=== PATIENT | female | born 1950 | race Two or more races ===

== ENCOUNTER → 2017-04-21 | Outpatient (CLI) | payer OTHER | LOC: SBRMNEURO 21:30 | PROVIDERS: ATTEND Psychiatry & Neurology Sleep Medicine | DX: G47.33 Obstructive sleep apnea (adult) (pediatric) (principal) ==

== ENCOUNTER 2018-05-16 09:18 | Day surgery (SDC) | payer OTHER ==
--- NOTE | 2018-05-15 11:47 | GHP ---
DATE OF ADMISSION: 05/16/2018 HISTORY OF PRESENT ILLNESS: The patient is a 67-year-old female who originally presented to our offi ce for what she thought was a right breast hematoma. She reports that it had been present for approx imately 2 years and had not changed in size. She does take Eliquis for a history of pulmonary emboli sm and TIA. Prior to presenting to our office, she saw her PCP for increased redness and tenderness around the site and was placed on a course of Augmentin. Upon presentation to our office, there was a concern for breast cancer as opposed to a hematoma. We performed a needle biopsy in the office thu t revealed invasive ductal carcinoma, at least 12 mm in size. It is ER/AR positive. Subsequently, s junaid presented to the emergency room on 03/26/2018, with a complaint of general fatigue and was found t o have a platelet count of 12,000. She was discharged the following day. Dr. Ozuna is her oncologi st, who at that time prescribed Augmentin for what was concerning for underlying cellulitis around he r breast mass. Dr. Miguel Ozuna feels that the patient would benefit from having chemotherapy followed by a lumpecto my. Our plan is to place a port for chemotherapy administration. PAST MEDICAL HISTORY: Asthma, congestive heart disease, essential hypertension, history of pulmonary embolism, left bundle branch block, nonischemic cardiomyopathy, pacemaker, internal cardiac defibril lator, transient ischemic attack. PAST SURGICAL HISTORY: Pacemaker. MEDICATION LIST: Benazepril 10 mg tablet, carvedilol 25 mg, Eliquis 5 mg b.i.d., loratadine 10 mg as needed, omeprazole 20 mg daily, ProAir HFA 90 mcg per actuation inhaler as needed for asthma, Pulmic ort 2 puffs b.i.d., spironolactone 25 mg every other day. ALLERGIES: Sulfa. FAMILY HISTORY: Noncontributory. SOCIAL HISTORY: She is a former smoker. She does not drink alcohol. She is . REVIEW OF SYSTEMS: Ten-point review of systems was performed and is negative except for what is in t he HPI. PHYSICAL EXAM: GENERAL: Well-appearing, well-dressed, obese female in no acute distress. HEENT: N ormocephalic, atraumatic. No gross hearing deficits. Mucous membranes are moist. Pupils are equal and round. PSYCHIATRIC: Appropriate mood and affect. NEUROLOGIC: Alert and oriented x3. CARDIAC: Regular rate and rhythm. CHEST: Clear to auscultation bilaterally. No crackles, rales, or rhonch i. ABDOMEN: Soft, nondistended, nontender. SKIN: Warm and dry. No rashes or jaundice. MUSCULOSK ELETAL: Moves all extremities equally. BREASTS: There is a firm mass, approximately 3 x 3 cm in si ze, in the right breast in the 2 o'clock position. There is significant surrounding induration. IMPRESSION AND PLAN: This is a 67-year-old female with newly found breast cancer who, along with her oncologist, have chosen to pursue chemotherapy prior to having surgery. We will plan to place a por t. Risks and options have been fully discussed. Risks of surgery include, but are not limited to, i nfection, bleeding, pneumothorax, hemothorax, heart attack, and . Patient understands and wishe s to proceed. /[id number]/MODL
[2018-05-16] MEDS ORDERED: ceFAZolin 2 GM/DEXTROSE 100 ML IV ONE (09:36)
[2018-05-16] MEDS ORDERED: LR 1,000 ML IV ONE (09:58)
[2018-05-16] MEDS ORDERED: LIDOCAINE 1% 2 ML INJ ID PRN (09:58)
[2018-05-16] MEDS ORDERED: BUPIVACAINE 0.5% 30 ML SDV ONE (11:18)
--- NOTE | 2018-05-16 11:18 | PDHPUP ---
History & Physical Update H&P update statement: This history and physical update is based on an assessment of the patient which was completed after admission or registration (within 24 hours), but prior to the surgery/procedure. H&P update: H&P reviewed & patient examined, no change in patient's condition since H&P completed
[2018-05-16] MEDS ORDERED: MIDAZOLAM 2 MG/2 ML VIAL IVP ONE (11:21)
[2018-05-16] MEDS ORDERED: PROPOFOL/EMULSION 500 MG/50 ML BOTTLE IV ONE (11:22)
[2018-05-16] MEDS ORDERED: ACETAMINOPHEN 500 MG TAB PO PRN (11:24)
[2018-05-16] MEDS ORDERED: fentaNYL 100 MCG/2 ML INJ IVP PRN (11:24)
[2018-05-16] MEDS ORDERED: ONDANSETRON 4 MG/2 ML VIAL IVP PRN (11:24)
[2018-05-16] MEDS ORDERED: HYDROCODONE/APAP 5/325 TAB PO PRN (11:24)
[2018-05-16] MEDS ORDERED: oxyCODONE IR 5 MG TAB PO PRN (11:24)
[2018-05-16] MEDS ORDERED: NALOXONE HCL 0.4 MG/ML INJ IVP PRN (11:24)
[2018-05-16] MEDS ORDERED: PROMETHAZINE HCL 25 MG/ML INJ IVP PRN (11:24)
--- NOTE | 2018-05-16 11:24 | PDANEPAE ---
ANE Past Medical History - Cardiovascular History Hx Hypertension: Yes Hx Arrhythmias: No Hx Chest Pain: No Hx Coronary Artery / Peripheral Vascular Disease: No Hx CHF / Valvular Disease: Yes Hx Palpitations: No Cardiovascular History Comment: hx blood clots - most recent in RLE beginning of March. Has stopped Eliquis 05/14 for surgery and will restart on 05/17. - Pulmonary History Hx COPD: No Hx Asthma/Reactive Airway Disease: Yes Hx Recent Upper Respiratory Infection: No Hx Oxygen in Use at Home: Yes O2 in Use at Home (L/minute): Uses 2L/min PRN Hx Sleep Apnea: No Sleep Apnea Screening Result - Last Documented: Positive Pulmonary History Comment: AMADOR Triggers - Neurologic History Hx Cerebrovascular Accident: Yes Hx Seizures: No Hx Dementia: No Neurologic History Comment: Hx TIA, 2016 - Endocrine History Hx Diabetes: No Obesity: severe - Renal History Hx Renal Disorders: No - Liver History Hx Hepatic Disorders: No - Neurological & Psychiatric Hx Hx Neurological and Psychiatric Disorders: No - Cancer History Hx Cancer: Yes Cancer History Comment: Breast cancer - Congenital Disorder History Hx Congenital Disorders: No - GI History GERD: moderate Hx Gastrointestinal Disorders: Yes Gastrointestinal History Comment: GERD - Other Health History Other Health History: hospitalized for thrombocytopenia 03/2018. gets eczema to different places on body - none currently. wears glasses. two bridges, upper & lower - Chronic Pain History Chronic Pain: No - Surgical History Prior Surgeries: pacemaker placement ANE Review of Systems Review of Systems: - Exercise capacity METS (RN): 2 METS - Pacemaker Pacemaker Type: Permanent Pacer/Defib Pacemaker [employer] Operator: [employer] Pacemaker Model: Itrevia 7 HF-T QP Pacemaker Mode: DDD-CLS Pacemaker Set Rate: 65 Date Pacemaker Last Checked: 11/19/2017 ANE Patient History - Allergies Allergies/Adverse Reactions: latex Allergy (Verified 05/16/18 10:01) Rash levofloxacin [From Levaquin] Allergy (Verified 05/16/18 10:01) Vomiting Sulfa (Sulfonamide Antibiotics) Allergy (Verified 05/16/18 10:01) Vomiting ALL ANTIBIOTIC Allergy (Uncoded 05/15/18 11:51) nausea - Home Medications Home medications: home medication list seen and reviewed Home Medications: Benazepril HCl [Lotensin (*)] 03/26/18 [Last Taken 05/15/18] Budesonide 180 Mcg INH [Pulmicort 180Mcg Flexhaler (*)] 03/26/18 [Last Taken 07:30] Carvedilol [Coreg (*)] 03/26/18 [Last Taken 05/16/18 07:30] Loratadine 03/26/18 [Last Taken 05/16/18 07:30] Omeprazole 03/26/18 [Last Taken 05/16/18 07:30] Spironolactone [Aldactone 25 MG (*)] 03/26/18 [Last Taken 05/15/18] Albuterol [Proventil Inhaler HFA (*)] 03/27/18 [Last Taken Unknown] Eliquis 05/15/18 [Last Taken 05/14/18] - NPO status NPO Status: no food or drink >8 hours NPO Since - Liquids (Date): 05/15/18 NPO Since - Liquids (Time): 22:30 NPO Since - Solids (Date): 05/15/18 NPO Since - Solids (Time): 19:30 - Anes Hx Anes Hx: no prior problems - Smoking Hx Smoking Status: Former smoker - Family Anes Hx Family Hx Anesthesia Complications: none ANE Labs/Vital Signs - Labs Result Diagrams: 05/16/18 10:15 - Vital Signs Blood Pressure: 109/67 Heart Rate: 79 Respiratory Rate: 16 O2 Sat (%): 95 Height: 162.56 cm Weight: 102.058 kg ANE Physical Exam - Airway Neck exam: FROM Mallampati Score: Class 1 Mouth exam: normal dental/mouth exam - Pulmonary Pulmonary: no respiratory distress, no rales or rhonchi, reduced air movement - Cardiovascular Cardiovascular: regular rate and rhythym, no murmur, rub, or gallop ANE Anesthesia Plan Anesthesia Plan: MAC
[2018-05-16] MEDS ORDERED: LIDOCAINE 2% 2 ML INJ ONE ×2 (11:25)
[2018-05-16] MEDS ORDERED: ONDANSETRON 4 MG/2 ML VIAL ONE (11:25)
[2018-05-16] MEDS ORDERED: BACITRACIN ZINC 14.2 GM OINTTUBE TP ONE (12:33)
--- NOTE | 2018-05-16 12:44 | POSTOPPROG ---
Post Op Note Date of Operation: 05/16/18 Surgeon: Scotty Esparza Anesthesiologist: jean marie Anesthesia: IV Sedation Pre-op Diagnosis: breast cancer Post-op Diagnosis: same Indication: chemo access Procedure: right subclavian port with flouro Findings: good position and flow Inf/Abcess present in the surg proc area at time of surgery?: No Depth: Deep Incisional (Fascial) EBL: Minimal Complications: 0
--- NOTE | 2018-05-16 13:01 | POSTANESTH ---
Post Anesthetic Evaluation Cardiovascular Status: Similar to Pre-Op Cond Respiratory Status: Similar to Pre-op Cond. Level of Consciousness/Mental Status: Can Participate in Eval, Alert and Oriented Pain Control: Adequate, Prn Tx Ordered Nausea/Vomiting Control: Adequate, Prn Tx Ordered Complications Possibly Related to Anesthesia: None Noted
[2018-05-16] MEDS ORDERED: fentaNYL 100 MCG/2 ML INJ ONE (13:23)
[2018-05-16 14:42] VITALS: BP 106/67
--- NOTE | 2018-05-19 07:51 | GOP ---
DATE OF OPERATION: 05/16/2018 SURGEON: Scotty Esparza MD PREOPERATIVE DIAGNOSIS: Breast cancer. POSTOPERATIVE DIAGNOSIS: Breast cancer. PROCEDURE PERFORMED: Right subclavian port placement with fluoroscopic guidance. FINDINGS: The patient was found in good position and good flow of the catheter. DESCRIPTION OF PROCEDURE: The patient was taken to the operating room where she received satisfactor y IV sedation and monitored anesthesia care, placed in the supine position, prepped and draped in usu al sterile fashion. She was then placed in Trendelenburg. Area was infiltrated with 0.5% Marcaine. A single stick was made in the right subclavian vein. Guidewire was introduced. Position was confi rmed with fluoroscopy. A subcu pocket was made in the subcutaneous tissue. Port tubing was passed f rom that pocket to the subclavian insertion site. It was trimmed to the appropriate length using flu oroscopic guidance, then introduced through the introducer sheath and dilator system into the right a trium. Port was irrigated with heparin and saline and appeared to flow well. Port was secured to th e fascia with 3-0 Vicryl. Pocket was closed with 3-0 Vicryl for the subcu and 4-0 Prolene subcuticul ar stitch for the skin, and the entrance site was closed with 4-0 Prolene mattress suture. She inge ated procedure well, taken to recovery room in good condition. There were no complications, appropri ate vital signs. Copy requested to: Miguel Garduno /[id number]/MODL
== END 2018-05-16 14:34 | disposition home or self-care (01) ==
LOC: FSGY 09:18
PROVIDERS: ATTEND Surgery
PROC: 0JH60XZ Insertion of Tunneled Vascular Access Device into Chest Subcutaneous Tissue and Fascia, Open Approach (ICD-10-PCS; principal; 2018-05-16 10:45)
PROC: 02HV33Z Insertion of Infusion Device into Superior Vena Cava, Percutaneous Approach (ICD-10-PCS; principal; 2018-05-16 10:45)
DX: Z45.2 Encounter for adjustment and management of vascular access device (principal); C50.111 Malignant neoplasm of central portion of right female breast; Z79.01 Long term (current) use of anticoagulants; Z86.73 Personal history of transient ischemic attack (TIA), and cerebral infarction without residual deficits; Z86.711 Personal history of pulmonary embolism; I10 Essential (primary) hypertension; G47.33 Obstructive sleep apnea (adult) (pediatric)
CPT/HCPCS: C1788; J0690; J1642; J2250; J2405; J2704; J3010

== ENCOUNTER 2018-06-13 17:45 | Inpatient (IN) | payer OTHER ==
[2018-06-13] MEDS ORDERED: NS 1,000 ML IV ONE (18:05)
--- NOTE | 2018-06-13 18:05 | EDPHY ---
H & P Stated Complaint: post chemo oral throat soreness diarrhea/not eating Time Seen by Provider: 06/13/18 18:00 HPI/ROS: HPI: This is a 67-year-old female who presents with Chief Complaint: post chemo oral throat soreness diarrhea/not eating Location: Body Quality: Generalized weakness Duration: 1 week Signs and Symptoms: no fever, no nausea, no vomiting, no diarrhea, no urinary symptoms, no chest pain, no shortness of breath, no wheezing, no cough, +sore throat, no neck stiffness, no joint pain, no swollen glands, no ear pain, no rash Timing: Gradually worsening Severity: Moderate to severe Context: Patient has a history of breast cancer, had chemotherapy on 06/05/2018 , and has had slow decline since that time and now complains of generalized body weakness. She has not eaten food in several days. She has been sipping on water. She denies nausea, vomiting. She does have loose stools approximately 1-2 per day. Denies any recent antibiotic use/foreign travel. Denies any abdominal pain, abdominal cramping, blood in stool, hematemesis. She reports that she was given oxycodone for pain but it makes her"feel funny." She does not take this pain medication because of the side effects. She is on Eliquis for history of DVT/PE reports that she has not taken it in 2-3 days. She is followed by Oncology, Dr. Ozuna. Patient denies any fevers. She does complain of a sore throat and dry cracked lips. Modifying Factors: none Comment: ROS: A comprehensive 10 system review of systems is otherwise negative aside from elements mentioned in the history of present illness. MEDICAL/SURGICAL/SOCIAL HISTORY: Medical history: Asthma, breast cancer, chemotherapy Surgical history: Pacemaker Social history: Former smoker. Family history noncontributory. CONSTITUTIONAL: Chronically ill-appearing, elderly white female, at bedside, awake and alert, no obvious distress HEENT: Atraumatic and normocephalic, PERRL, EOMI. Nares patent; no rhinorrhea; no nasal mucosal edema. Tympanic membranes clear. Oropharynx clear, no exudate and, oral petechiae noted, cracked lips, dry oral mucosa. Airway patent. No lymphadenopathy. No meningismus. Cardiovascular: Normal S1/S2, tachycardia, regular rhythm, without murmur rub or gallop. PULMONARY/CHEST: Symmetrical and nontender. Clear to auscultation bilaterally. Good air movement. No accessory muscle usage. ABDOMEN: Soft, obesely rounded, nontender, no rebound, no guarding, no peritoneal signs, no masses or organomegaly. No CVAT. EXTREMITIES: 2/2 pulses, strength 5/5, no deformities, no clubbing, no cyanosis or edema. NEUROLOGICAL: no focal neuro deficits. GCS 15. SKIN: Warm and dry, no erythema. no rash. Good capillary refill. Source: Patient, Family Exam Limitations: No limitations - Personal History Current Tetanus Diphtheria and Acellular Pertussis (TDAP): Unsure Tetanus Vaccine Date: <10 years - Medical/Surgical History Hx Asthma: Yes Hx Chronic Respiratory Disease: No Hx Diabetes: No Hx Cardiac Disease: No Hx Renal Disease: No Hx Cirrhosis: No Hx Alcoholism: No Hx HIV/AIDS: No Hx Splenectomy or Spleen Trauma: No Other PMH: asthma, pacemaker, breast CA - Social History Smoking Status: Former smoker Constitutional: Initial Vital Signs Temperature (C) 37.2 C 06/13/18 17:50 Heart Rate 112 H 06/13/18 17:50 Respiratory Rate 18 06/13/18 17:50 Blood Pressure 140/94 H 06/13/18 17:50 O2 Sat (%) 94 06/13/18 17:50 O2 Delivery Mode Room Air Allergies/Adverse Reactions: latex Allergy (Verified 06/13/18 17:47) Rash levofloxacin [From Levaquin] Allergy (Verified 06/13/18 17:47) Vomiting Sulfa (Sulfonamide Antibiotics) Allergy (Verified 06/13/18 17:47) Vomiting ALL ANTIBIOTIC Allergy (Uncoded 05/15/18 11:51) nausea Home Medications: Medication Instructions Recorded Benazepril HCl [Lotensin (*)] 03/26/18 Budesonide 180 Mcg INH [Pulmicort 03/26/18 180Mcg Flexhaler (*)] Carvedilol [Coreg (*)] 03/26/18 Loratadine 03/26/18 Omeprazole 03/26/18 Spironolactone [Aldactone 25 MG 03/26/18 (*)] Albuterol [Proventil Inhaler HFA 03/27/18 (*)] Eliquis 06/13/18 Medical Decision Making ED Course/Re-evaluation: IV access and laboratory studies obtained upon arrival. Vital signs show tachycardia likely due to pre renal from lack of intake and GI losses. Urinalysis, strep test ordered along with lactic acid. Patient refused influenza testing. Patient is afebrile and denies fevers. Patient is immunocompromised. Given 1 L normal saline 1830: Rapid strep negative and lactic acid 1.7 urinalysis shows 2+ protein, trace ketones, 1+ blood, 1+ glucose; indicating dehydration; 4+ bacteria; sent for urine culture and IV 2 g Rocephin given 183: Labs reviewed. Sodium 130, BUN 41, creatinine 1.3, potassium 3.8; total bilirubin 2.9, conjugated bilirubin 1.1, unconjugated bilirubin 1.8. Laboratory studies on 05/16/2018 showed BUN of 14 and creatinine 1.0. This is indicative of acute renal insufficiency. 1850: Called by lab to notify me that platelets are 11 K, H&H 12.4/36.6, WBC 1.22 1840: ED decision to consult for admission acute renal insufficiency, UTI, thrombocytopenia. Spoke with hospitalist, Dr. John, who kindly agrees to admit patient and provide further care. This patient was seen under the supervision of my secondary supervising physician. I evaluated care for this patient independently. Discussed this patient with Dr. Vasuqez. Differential Diagnosis: Weakness including but not limited to electrolyte abnormality, depression, anxiety, CVA, spinal cord abnormality, and infectious causes. - Data Points Laboratory Results: Laboratory Results 06/13/18 18:11 06/13/18 18:11 06/13/18 06/13/18 06/13/18 Unknown 18:19 18:11 WBC RBC Hgb Hct MCV MCH MCHC RDW Plt Count MPV Neut % (Auto) Lymph % (Auto) [place] % (Auto) Eos % (Auto) Baso % (Auto) Nucleat RBC Rel Count Absolute Neuts (auto) Absolute Lymphs (auto) Absolute Monos (auto) Absolute Eos (auto) Absolute Basos (auto) Absolute Nucleated RBC Immature Gran % Immature Gran # Platelet Estimate Smear Review By PT INR APTT VBG Lactic Acid Sodium 130 mEq/L L mEq/L (135-145) Potassium 3.8 mEq/L mEq/L (3.3-5.0) Chloride 97 mEq/L mEq/L (97-110) Carbon Dioxide 21 mEq/l L mEq/l (22-31) Anion Gap 12 mEq/L mEq/L (6-14) BUN 41 mg/dL H mg/dL (7-23) Creatinine 1.3 mg/dL H mg/dL (0.6-1.0) Estimated GFR 41 Glucose 105 mg/dL H mg/dL (70-100) Calcium 8.8 mg/dL mg/dL (8.5-10.4) Total Bilirubin 2.9 mg/dL H mg/dL (0.1-1.4) Conjugated Bilirubin 1.1 mg/dL H mg/dL (0.0-0.5) Unconjugated Bilirubin 1.8 mg/dL H mg/dL (0.0-1.1) AST 30 IU/L IU/L (14-46) ALT 39 IU/L IU/L (9-52) Alkaline Phosphatase 64 IU/L IU/L (38-126) Total Protein 5.8 g/dL L g/dL (6.3-8.2) Albumin 3.3 g/dL L g/dL (3.5-5.0) Urine Color ZARIA Urine Appearance MODERATELY TURBID Urine pH 5.0 (5.0-7.5) Ur Specific [place] 1.023 (1.002-1.030) Urine Protein 2+ H (NEGATIVE) Urine Ketones TRACE H (NEGATIVE) Urine Blood 1+ H (NEGATIVE) Urine Nitrate NEGATIVE (NEGATIVE) Urine Bilirubin NEGATIVE (NEGATIVE) Urine Urobilinogen 4.0 EU H EU (0.2-1.0) Ur Leukocyte Esterase NEGATIVE (NEGATIVE) Urine RBC 3-5 /hpf H /hpf (0-3) Urine WBC 50-182 /hpf H /hpf (0-3) Ur Epithelial Cells TRACE /lpf /lpf (NONE-1+) Urine Bacteria 4+ /hpf H /hpf (NONE SEEN) Urine Mucus 2+ /lpf H /lpf (NONE-1+) Urine Glucose 1+ H (NEGATIVE) Group A Strep Screen Group A Strep DNA Pending 06/13/18 06/13/18 06/13/18 18:11 18:11 18:11 WBC 1.22 10^3/uL L 10^3/uL (3.80-9.50) RBC 4.27 10^6/uL 10^6/uL (4.18-5.33) Hgb 12.4 g/dL L g/dL (12.6-16.3) Hct 36.6 % L % (38.0-47.0) MCV 85.7 fL fL (81.5-99.8) MCH 29.0 pg pg (27.9-34.1) MCHC 33.9 g/dL g/dL (32.4-36.7) RDW 13.0 % % (11.5-15.2) Plt Count 11 10^3/uL L* 10^3/uL (150-400) MPV TNP Neut % (Auto) 58.2 % % (39.3-74.2) Lymph % (Auto) 24.6 % % (15.0-45.0) [place] % (Auto) 13.1 % H % (4.5-13.0) Eos % (Auto) 1.6 % % (0.6-7.6) Baso % (Auto) 2.5 % H % (0.3-1.7) Nucleat RBC Rel Count 0.0 % % (0.0-0.2) Absolute Neuts (auto) 0.71 10^3/uL L 10^3/uL (1.70-6.50) Absolute Lymphs (auto) 0.30 10^3/uL L 10^3/uL (1.00-3.00) Absolute Monos (auto) 0.16 10^3/uL L 10^3/uL (0.30-0.80) Absolute Eos (auto) 0.02 10^3/uL L 10^3/uL (0.03-0.40) Absolute Basos (auto) 0.03 10^3/uL 10^3/uL (0.02-0.10) Absolute Nucleated RBC 0.00 10^3/uL 10^3/uL (0-0.01) Immature Gran % 0.0 % % (0.0-1.1) Immature Gran # 0.00 10^3/uL 10^3/uL (0.00-0.10) Platelet Estimate Pending Smear Review By Pending PT 14.2 SEC SEC (12.0-15.0) INR 1.08 (0.83-1.16) APTT 27.5 SEC SEC (23.0-38.0) VBG Lactic Acid 1.7 mmol/L mmol/L (0.7-2.1) Sodium Potassium Chloride Carbon Dioxide Anion Gap BUN Creatinine Estimated GFR Glucose Calcium Total Bilirubin Conjugated Bilirubin Unconjugated Bilirubin AST ALT Alkaline Phosphatase Total Protein Albumin Urine Color Urine Appearance Urine pH Ur Specific [place] Urine Protein Urine Ketones Urine Blood Urine Nitrate Urine Bilirubin Urine Urobilinogen Ur Leukocyte Esterase Urine RBC Urine WBC Ur Epithelial Cells Urine Bacteria Urine Mucus Urine Glucose Group A Strep Screen Group A Strep DNA 06/13/18 18:04 WBC RBC Hgb Hct MCV MCH MCHC RDW Plt Count MPV Neut % (Auto) Lymph % (Auto) [place] % (Auto) Eos % (Auto) Baso % (Auto) Nucleat RBC Rel Count Absolute Neuts (auto) Absolute Lymphs (auto) Absolute Monos (auto) Absolute Eos (auto) Absolute Basos (auto) Absolute Nucleated RBC Immature Gran % Immature Gran # Platelet Estimate Smear Review By PT INR APTT VBG Lactic Acid Sodium Potassium Chloride Carbon Dioxide Anion Gap BUN Creatinine Estimated GFR Glucose Calcium Total Bilirubin Conjugated Bilirubin Unconjugated Bilirubin AST ALT Alkaline Phosphatase Total Protein Albumin Urine Color Urine Appearance Urine pH Ur Specific [place] Urine Protein Urine Ketones Urine Blood Urine Nitrate Urine Bilirubin Urine Urobilinogen Ur Leukocyte Esterase Urine RBC Urine WBC Ur Epithelial Cells Urine Bacteria Urine Mucus Urine Glucose Group A Strep Screen NEGATIVE (NEGATIVE) Group A Strep DNA Medications Given: Discontinued Medications Sodium Chloride (Ns) 1,000 mls @ 0 mls/hr IV ONCE ONE; Wide Open PRN Reason: Protocol Stop: 06/13/18 18:06 Last Admin: 06/13/18 18:21 Dose: 1,000 mls Departure - Departure Disposition: [facility] Inpatient Acute Clinical Impression: Patient on antineoplastic chemotherapy regimen, Generalized weakness, Acute renal insufficiency, Thrombocytopenia due to drugs, UTI (urinary tract infection ), bacterial, Hyponatremia Condition: Fair
[2018-06-13 18:32] LABS: INR 1.08 (0.83-1.16)
[2018-06-13 18:45] LABS: PROTIME(PATIENT) 14.2 SEC (12.0-15.0)
[2018-06-13 18:51] LABS: PLATELET COUNT 11 10^3/uL (150-400)
[2018-06-13] MEDS ORDERED: cefTRIAXone 1 GM/DEXTROSE 1 GM/50 ML BAG IV ONE (19:02)
[2018-06-13] MEDS ORDERED: ONDANSETRON DISINTEGRATING 4 MG TAB PO PRN (19:50)
[2018-06-13] MEDS ORDERED: ONDANSETRON 4 MG/2 ML VIAL IVP PRN (19:50)
[2018-06-13] MEDS ORDERED: ACETAMINOPHEN 325 MG TAB PO PRN (19:50)
[2018-06-13] MEDS ORDERED: ALBUTEROL 60 PUFFS/8 GM MDI IH PRN (19:52)
--- NOTE | 2018-06-13 19:58 | PDGENHP ---
History and Physical - Chief Complaint weakness, diarrhea, malaise - History of Present Illness 67 yo female with recent diagnosis of breast cancer who underwent first round of chemo one week ago presents to ED with general malaise, weakness, diarrhea, and decreased oral intake. She says she has felt terrible since receiving chemo last week. Diarrhea 2-5 times per day. Poor appetite, body aches. She c /o mouth pain and ulcers. She had a significant nosebleed yesterday, which was difficult to stop, but ultimately they did stop it. She continues to have oozing from some sores on her lips, mouth and nose. She denies fevers or chills. No dysuria, frequency or urgency. No abdominal pain, nausea or vomiting. She has been unable to eat due to poor appetite and mouth pain. She hasn't taken her Eliquis or other meds for 2 days. No CP or SOB. She says she wants to discontinue chemo and proceed with mastectomy alone. Doesn't think she can tolerate further chemo treatments. In the ED, she is found to have an acute kidney injury, low sodium, and pancytopenia. She was given 1 L NS and is admitted for further management. History Information - Allergies/Home Medication List Allergies/Adverse Reactions: latex Allergy (Verified 06/13/18 17:47) Rash levofloxacin [From Levaquin] Allergy (Verified 06/13/18 17:47) Vomiting Sulfa (Sulfonamide Antibiotics) Allergy (Verified 06/13/18 17:47) Vomiting ALL ANTIBIOTIC Allergy (Uncoded 05/15/18 11:51) nausea Home Medications: Albuterol [Proventil Inhaler HFA (*)] 1 - 2 puffs IH Q4H PRN 06/13/18 [Last Taken Unknown] Apixaban [Eliquis] 5 mg PO BID 06/13/18 [Last Taken Unknown] Benazepril HCl [Lotensin (*)] 10 mg PO DAILY 06/13/18 [Last Taken Unknown] Budesonide 180 Mcg INH [Pulmicort 180Mcg Flexhaler (*)] 180 mcg IH BID 06/13/18 [Last Taken Unknown] Carvedilol [Coreg (*)] 25 mg PO BIDMEAL 06/13/18 [Last Taken 06/11/18] Loratadine [Claritin] 10 mg PO DAILY 06/13/18 [Last Taken Unknown] Omeprazole 20 mg PO DAILY 06/13/18 [Last Taken 06/11/18] Spironolactone [Aldactone 25 MG (*)] 12.5 mg PO DAILY 06/13/18 [Last Taken Unknown] I have personally reviewed and updated: family history, medical history, social history, surgical history - Past Medical History cancer Additional medical history: HTN, GERD, breast cancer recently diagnosed, bilateral PE in 2014 currently on Eliquis, asthma - Surgical History Additional surgical history: Pacer/ICD placement following 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 She has not uncle with history of diabetes otherwise remainder of immediate family member medical history is negative. - Social History Smoking Status: Former smoker Alcohol Use: None Drug Use: None Additional social history: Patient is lives with her . She is employed. Cor status-full. Review of Systems Review of Systems: ROS: 10pt was reviewed & negative except for what was stated in HPI & below Physical Exam Physical Exam: Temp Pulse Resp BP Pulse Ox 37.2 C 96 18 136/74 H 96 06/13/18 17:50 06/13/18 19:42 06/13/18 19:42 06/13/18 19:42 06/13/18 19:42 Constitutional: no apparent distress Eyes: PERRL Ears, Nose, Mouth, Throat: dry mucous membranes, other (petechia on lips, oral ulcers) Cardiovascular: regular rate and rhythym Respiratory: no respiratory distress, clear to auscultation Gastrointestinal: normoactive bowel sounds, soft, non-tender abdomen Skin: warm Musculoskeletal: full muscle strength Neurologic: AAOx3 Psychiatric: interacting appropriately Lab Data & Imaging Review 06/13/18 18:11 06/13/18 18:11 WBC 1.22 10^3/uL (3.80-9.50) L 06/13/18 18:11 RBC 4.27 10^6/uL (4.18-5.33) 06/13/18 18:11 Hgb 12.4 g/dL (12.6-16.3) L 06/13/18 18:11 Hct 36.6 % (38.0-47.0) L 06/13/18 18:11 MCV 85.7 fL (81.5-99.8) 06/13/18 18:11 MCH 29.0 pg (27.9-34.1) 06/13/18 18:11 MCHC 33.9 g/dL (32.4-36.7) 06/13/18 18:11 RDW 13.0 % (11.5-15.2) 06/13/18 18:11 Plt Count 11 10^3/uL (150-400) L* 06/13/18 18:11 MPV TNP 06/13/18 18:11 Neut % (Auto) 58.2 % (39.3-74.2) 06/13/18 18:11 Lymph % (Auto) 24.6 % (15.0-45.0) 06/13/18 18:11 [place]ander % (Auto) 13.1 % (4.5-13.0) H 06/13/18 18:11 Eos % (Auto) 1.6 % (0.6-7.6) 06/13/18 18:11 Baso % (Auto) 2.5 % (0.3-1.7) H 06/13/18 18:11 Nucleat RBC Rel Count 0.0 % (0.0-0.2) 06/13/18 18:11 Absolute Neuts (auto) 0.71 10^3/uL (1.70-6.50) L 06/13/18 18:11 Absolute Lymphs (auto) 0.30 10^3/uL (1.00-3.00) L 06/13/18 18:11 Absolute Monos (auto) 0.16 10^3/uL (0.30-0.80) L 06/13/18 18:11 Absolute Eos (auto) 0.02 10^3/uL (0.03-0.40) L 06/13/18 18:11 Absolute Basos (auto) 0.03 10^3/uL (0.02-0.10) 06/13/18 18:11 Absolute Nucleated RBC 0.00 10^3/uL (0-0.01) 06/13/18 18:11 Immature Gran % 0.0 % (0.0-1.1) 06/13/18 18:11 Immature Gran # 0.00 10^3/uL (0.00-0.10) 06/13/18 18:11 Platelet Estimate DECREASED (ADEQ) L 06/13/18 18:11 PT 14.2 SEC (12.0-15.0) 06/13/18 18:11 INR 1.08 (0.83-1.16) 06/13/18 18:11 APTT 27.5 SEC (23.0-38.0) 06/13/18 18:11 VBG Lactic Acid 1.7 mmol/L (0.7-2.1) 06/13/18 18:11 Sodium 130 mEq/L (135-145) L 06/13/18 18:11 Potassium 3.8 mEq/L (3.3-5.0) 06/13/18 18:11 Chloride 97 mEq/L (97-110) 06/13/18 18:11 Carbon Dioxide 21 mEq/l (22-31) L 06/13/18 18:11 Anion Gap 12 mEq/L (6-14) 06/13/18 18:11 BUN 41 mg/dL (7-23) H 06/13/18 18:11 Creatinine 1.3 mg/dL (0.6-1.0) H 06/13/18 18:11 Estimated GFR 41 06/13/18 18:11 Glucose 105 mg/dL (70-100) H 06/13/18 18:11 Calcium 8.8 mg/dL (8.5-10.4) 06/13/18 18:11 Total Bilirubin 2.9 mg/dL (0.1-1.4) H 06/13/18 18:11 Conjugated Bilirubin 1.1 mg/dL (0.0-0.5) H 06/13/18 18:11 Unconjugated Bilirubin 1.8 mg/dL (0.0-1.1) H 06/13/18 18:11 AST 30 IU/L (14-46) 06/13/18 18:11 ALT 39 IU/L (9-52) 06/13/18 18:11 Alkaline Phosphatase 64 IU/L (38-126) 06/13/18 18:11 Total Protein 5.8 g/dL (6.3-8.2) L 06/13/18 18:11 Albumin 3.3 g/dL (3.5-5.0) L 06/13/18 18:11 Urine Color ZARIA 06/13/18 18: Urine Appearance MODERATELY TURBID 06/13/18 18:19 Urine pH 5.0 (5.0-7.5) 06/13/18 18:19 Ur Specific [place] 1.023 (1.002-1.030) 06/13/18 18:19 Urine Protein 2+ (NEGATIVE) H 06/13/18 18:19 Urine Ketones TRACE (NEGATIVE) H 06/13/18 18:19 Urine Blood 1+ (NEGATIVE) H 06/13/18 18:19 Urine Nitrate NEGATIVE (NEGATIVE) 06/13/18 18: Urine Bilirubin NEGATIVE (NEGATIVE) 06/13/18 18: Urine Urobilinogen 4.0 EU (0.2-1.0) H 06/13/18 18:19 Ur Leukocyte Esterase NEGATIVE (NEGATIVE) 06/13/18 18: Urine RBC 3-5 /hpf (0-3) H 06/13/18 18: Urine WBC 50-182 /hpf (0-3) H 06/13/18 18:19 Ur Epithelial Cells TRACE /lpf (NONE-1+) 06/13/18 18: Urine Bacteria 4+ /hpf (NONE SEEN) H 06/13/18 18: Urine Mucus 2+ /lpf (NONE-1+) H 06/13/18 18: Urine Glucose 1+ (NEGATIVE) H 06/13/18 18:19 Group A Strep Screen NEGATIVE (NEGATIVE) 06/13/18 18:04 Assessment & Plan Assessment: 67 yo female with recent diagnosis of breast cancer, who started chemotherapy 1 week ago, pw weakness, diarrhea, poor oral intake, mouth pain and recent epistaxis Possible UTI - Though no fevers or specific urinary symptoms are identified, she has weakness and general malaise -treat with Ceftriaxone while awaiting culture data Diarrhea - suspect 2/2 chemo -send GI path panel, if neg will give imodium Pancytopenia - 2/2 chemo. plts 11K, ANC 710. Petechia and oozing from lips and nose with significant epistaxis yesterday -hold eliquis with low plts and bleeding -transfuse 1 unit plts given significant epistaxis yesterday and ongoing oozing today Breast cancer - followed by Dr. Ozuna at [facility], last chemo 06/05 -oncology consult in am H/O PE in 2015 - holding eliquis with recent bleeding and low plts CHRISSY - likely pre-renal with GI losses, poor oral intake and appears volume depleted on exam -NS overnight -recheck in Cr in am Hyponatremia - suspect hypovolemic -NS, follow Hyperbilirubinemia - Mostly unconjugated, could be [place] vs related to infection. Transaminases o/w nl. -trend, consider abd CT to eval for hepatic mets if worsening Hypertension - normotensive on arrival -hold spironolactone, troy, and coreg for now given volume depletion and infection -resume in am if indicated Weakness - in setting of chemo, diarrhea and suspected UTI -IVF's for hydration -PT/OT Full code DVT PPLX - defer pharm and SCD's with low plts Dispo - inpt, anticipate >48 hrs in hospital with UTI, CHRISSY and weakness. PT/OT evals.
[2018-06-13] MEDS ORDERED: diphenhydrAMINE 25 MG CAP PO PRN (22:40)
[2018-06-13] MEDS: MBX SOLN 30 ML BOTTLE PO PRN (23:14)
[2018-06-13] MEDS: NS W/ 20 KCl/L 1,000 ML IV SCH (23:37)
[2018-06-14] MEDS: BUDESONIDE 180 MCG MDI IH SCH ×3 (02:15→20:22)
[2018-06-14] MEDS: NS W/ 20 KCl/L 1,000 ML IV SCH (08:07)
[2018-06-14] MEDS: MBX SOLN 30 ML BOTTLE PO PRN ×3 (08:12→16:37)
[2018-06-14 08:42] LABS: PLATELET COUNT 7 10^3/uL (150-400)
[2018-06-14] MEDS ORDERED: PANTOPRAZOLE SODIUM 40 MG TAB PO SCH (09:00)
--- NOTE | 2018-06-14 09:51 | HOSPPROG ---
Hospitalist Progress Note Assessment/Plan: 67 yo female with recent diagnosis of breast cancer, who started chemotherapy 1 week ago, pw weakness, diarrhea, poor oral intake, mouth pain and recent epistaxis Possible UTI - Though no fevers or specific urinary symptoms are identified, she has weakness and general malaise -treat with Ceftriaxone while awaiting culture data Diarrhea - suspect 2/2 chemo -send GI path panel, if neg will give imodium Pancytopenia - 2/2 chemo. Severe thrombocytopenia * She is refusing any blood products. Asked her if she would accept blood products if it would save her life emergently and she refused * She is not having any major bleeding * It distinguish she has low platelets a few months ago that was attributed to ITP. It does seem that the degree of thrombocytopenia is not necessarily consistent with chemotherapy for breast cancer but will defer to Oncology \\ Breast cancer - followed by Dr. Ozuna at [facility], last chemo 06/05 * Will discuss with Oncology H/O PE in 2015 - holding eliquis with recent bleeding and low plts CHRISSY - likely pre-renal with GI losses, poor oral intake and appears volume depleted on exam * Continue IV fluids Hyponatremia - suspect hypovolemic -NS, follow Hyperbilirubinemia - Mostly unconjugated, could be [place] vs related to infection. Transaminases o/w nl. -trend, consider abd CT to eval for hepatic mets if worsening Hypertension - normotensive on arrival -hold spironolactone, troy, and coreg for now given volume depletion and infection -resume in am if indicated Weakness - in setting of chemo, diarrhea and suspected UTI -IVF's for hydration -PT/OT Full code DVT PPLX - defer pharm and SCD's with low plts Dispo - inpt, anticipate >48 hrs in hospital with UTI, CHRISSY and weakness. PT/OT evals. Subjective: feels a little better. refusing blood products. "everything tastes bad" Objective: Vital Signs Temp Pulse Resp BP Pulse Ox 37.7 C 94 14 122/80 H 92 06/14/18 08:18 06/14/18 08:18 06/14/18 08:18 06/14/18 08:18 06/14/18 07:36 Microbiology 06/14/18 01:05 Gastrointestinal Tract Panel (PCR) - Final Stool No Organism Detected Laboratory Results 06/14/18 07:15 06/14/18 04:43 06/13/18 06/14/18 06/15/18 05:59 05:59 05:59 Intake Total 1725 Output Total 50 Balance 1675 PT 14.2 SEC (12.0-15.0) 06/13/18 18:11 INR 1.08 (0.83-1.16) 06/13/18 18:11 - Physical Exam Constitutional: no apparent distress, appears nourished, not in pain Eyes: anicteric sclera Ears, Nose, Mouth, Throat: moist mucous membranes, oral ulcer Cardiovascular: regular rate and rhythym, No edema Respiratory: no respiratory distress, no rales or rhonchi Skin: other (bruising and petechaie) Neurologic: AAOx3 Psychiatric: interacting appropriately, not anxious, not encephalopathic, thought process linear ICD10 Worksheet Patient Problems: Problems Problem Status Onset Acute renal insufficiency Acute Generalized weakness Acute Hyponatremia Acute Patient on antineoplastic chemotherapy regimen Acute Thrombocytopenia due to drugs Acute UTI (urinary tract infection), bacterial Acute Cardiomyopathy Acute Fatigue Acute Thrombocytopenia Acute
[2018-06-14] MEDS: Loratadine [Claritin] 10 MG PO SCH (10:04)
--- NOTE | 2018-06-14 11:57 | PDMN ---
Medical Necessity Medical necessity: Pt meets IP criteria per MD & MCG M-300; est los >2 mn for eval/tx of possible UTI w/acute kidney injury, poor oral intake, weakness, epistaxis & diarrhea s/p chemo; awaiting cxs; requiring further monitoring, Oncology consult, IVFs, follow-up labs & therapies; hx breast cancer; per H&P & order 06/13/18
[2018-06-14] MEDS ORDERED: LIDOCAINE 2% VISCOUS 15 ML UDCUP PO PRN (12:19)
[2018-06-14] MEDS ORDERED: DEXAMETHASONE 10 MG/ML VIAL IVP SCH (12:30)
--- NOTE | 2018-06-14 12:45 | ASMTCMCOM ---
CM Note CM Note Notes: Patient who is one week post chemo (first tx for recent dx of breast cancer) admitted for thrombocytopenia, UTI, CHRISSY and general malaise. Patient is normally independent and lives with . She is feeling very poorly and reconsidering chemo tx based on her current condition. Palliative will see her, and I've alerted Marivel Lundy, breast cancer passementerie worker. PT/OT evals pending, as well. Case Managment will follow. Date Signed: 06/14/2018 12:44 PM Electronically Signed By:Aimee Quevedo RN
[2018-06-14] MEDS ORDERED: DEXAMETHASONE 40 MG in D5W 50 ML IV SCH (13:00)
[2018-06-14] MEDS: D5W IV SCH (13:55)
[2018-06-14] MEDS: DEXAMETHASONE SOD PHOSPHATE IV SCH (13:55)
[2018-06-14] MEDS: PANTOPRAZOLE SODIUM 40 MG VIAL IVP SCH (13:55)
[2018-06-14] MEDS ORDERED: LIDOCAINE/PRILOCAINE 1 EACH CRTUBE TP ONE (14:29)
[2018-06-14 16:09] LABS: PLATELET COUNT 7 10^3/uL (150-400)
[2018-06-14 16:16] LABS: INR 1.08 (0.83-1.16); PROTIME(PATIENT) 14.2 SEC (12.0-15.0)
--- NOTE | 2018-06-14 18:26 | GCON ---
HEMATOLOGY/ONCOLOGY CONSULTATION REASON FOR CONSULTATION: Thrombocytopenia. Melany is a 67-year-old woman, followed by Dr. 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 At that time, she had a platelet count of 12,000. She received a course of dexamethasone 40 mg daily for 4 days. She also received 1 dose of Rituxan (04/11/2018). She did not tolerate that well and it was thus discontinued. Her platelet count joanna to a peak of 292,000 (05/13/2018). I do not see a serologic workup. She had been anticoagulated with Eliquis due to a PE in 2014. Anticoagulation was held due to her thrombocytopenia. She was found to have a right common femoral DVT, 04/30/2018, and Eliquis was restarted. In terms of her breast cancer, she presented with a locally advanced neglected right breast cancer with erosion through the skin. She had noted a breast mass for approximately 2 years, but had not sought attention. Biopsy 03/18/2018 demonstrated invasive ductal carcinoma, grade 3, ER/IN/HER2 positive. Ki-67 of 30%. CT chest (03/27/2018) demonstrated small pulmonary nodules (up to 7 mm), right breast mass measuring 4.9 cm, and axillary nodes measuring up to 1.5 cm. A lobulated, markedly enlarged uterus with a cystic mass inseparable from the right ovary was found. A subsequent PET scan (05/09/2018) demonstrated uptake in the right breast and in 2 axillary nodes. No uptake in the abdomen or pelvis. Focal abnormality in the T2 vertebral body without corresponding CT finding. She began neoadjuvant chemotherapy with docetaxel/carboplatin/Herceptin/ pertuzumab (TCHP), 09/05/2017, with Neulasta on day 2. She has since been struggling overall with feeling poorly. She has not had vomiting, but has nausea and reduced PO intake. She has had significant diarrhea over the last 3 days. She has fatigue and generalized weakness. She has had some mild epistaxis. She has mucositis and has had some oozing from sores on her lips. No other bleeding. She has not taken Eliquis for the last couple days. She came to the emergency room yesterday where a CBC demonstrated WBC of 1.2, ANC 0.7, hemoglobin 12.4, platelets 11,000. Creatinine 1.3, total bilirubin 2.9 , direct 1.1, indirect 1.8. She feels a little better after IV fluids. She has had no further epistaxis. PAST MEDICAL HISTORY: 1. Right lower extremity common femoral vein DVT, 04/30/2018. 2. Unprovoked PE, 2014. 3. Left bundle branch block. 4. Hypertension. 5. GERD. 6. Asthma. PAST SURGICAL HISTORY: Pacer, ICD placement, 2014. FAMILY HISTORY: No history of malignancy. SOCIAL HISTORY: She is and they live in [place]. She is not a current smoker, but has smoked in the past. No alcohol. MEDICATIONS: Reviewed in [facility] and office notes. ALLERGIES: Levofloxacin, sulfa. REVIEW OF SYSTEMS: CONSTITUTIONAL: No fevers or chills. Fatigue per HPI. EYES: no vision changes. ENT: Mucositis as above. CARDIOVASCULAR: No chest pain, palpitations, PND, or new lower extremity edema. RESPIRATORY: No pleurisy, cough. GI: As above. HEMATOLOGIC: As above. MUSCULOSKELETAL: No new bony complaints. NEURO: No new headache, focal neurologic symptoms. BREASTS: She thinks her right breast mass may be slightly smaller. LYMPH: no lymphedema. PHYSICAL EXAMINATION: VITALS: Blood pressure 118/80, pulse 98, respirations 15 , 96% on room air, afebrile throughout her admission thus far. GENERAL: Pleasant woman who appears fatigued but in otherwise no acute distress. HEENT: Mucositis involving the lips. NECK: Supple. CARDIOVASCULAR: Regular rate and rhythm. No pretibial edema. LUNGS: Clear to auscultation bilaterally. ABDOMEN: Soft, nontender, nondistended. SKIN: A few scattered ecchymoses over the upper extremities. No petechiae. NEUROLOGIC: Grossly nonfocal. BREASTS: Right upper breast mass with erosion through the skin, dry surface, no significant erythema. LABORATORY DATA: WBC 1.38, hemoglobin 10.3, platelets 7000. No differential. Creatinine 1.2, total bilirubin 1.5. Normal coags on admission. GI PCR negative. IMPRESSION: 1. Severe thrombocytopenia, most consistent with ITP. 2. Locally advanced right breast cancer (clinical IIIB, T4b N1), ER/IN/HER2 positive. 3. Recent right lower extremity deep vein thrombosis, 04/30/2018. 4. Chemotherapy (Taxotere, pertuzumab)-induced diarrhea. 5. Chemotherapy-induced neutropenia. 6. Chemotherapy-induced mucositis. I had a lengthy discussion with the patient and her regarding her laboratory studies and recommendations. She is not currently actively bleeding , although has a platelet count less than 10,000. She is opposed to transfusions and, given the lack of current bleeding, I do not think platelet transfusion is necessary. In ITP, this would be only indicated in the setting of acute bleeding, response to transfusions is typically minimal and short lived. She likely has a combination of both ITP and chemotherapy-induced thrombocytopenia. Today is cycle 1, day 10 of chemotherapy and her neutrophil and platelet counts should start improving in terms of chemotherapy-induced myelosuppression. She did receive Neulasta. I recommend she begin dexamethasone 40 mg daily for 4 days. We also discussed IVIG as a method to increase her platelet count faster. She is uncomfortable with that given it is a blood product, but she will consider. She has not been taking Eliquis for the last couple of days. Anticoagulation needs to be held in light of her severe thrombocytopenia. She had a fairly recent deep vein thrombosis, 04/30/2018, and is at risk for pulmonary embolism. I anticipate her thrombocytopenia to be an ongoing process, whether or not she pursues further chemotherapy, thus we discussed an IVC filter, at least temporarily. After lengthy discussion, she is willing to at least discuss with Interventional Radiology. Meanwhile, we will repeat lower extremity Dopplers. In terms of her chemotherapy-associated diarrhea, gastrointestinal pathogen PCR was negative and I recommend beginning Imodium. She currently thinks she will not pursue further chemotherapy, but I asked her to keep an open mind for now. We do not need to make any decision regarding that at the present time. She has felt overwhelmed with the amount of medical testing, care, etc., she has had in the last couple of months. PLAN: 1. Dexamethasone 40 mg daily for 4 days. She requests this to be IV given her mucositis. 2. She will think about IVIG. 3. Hold Eliquis. She will consider IVC filter with Interventional Radiology. 4. Imodium as above. 5. Mouth care. 6. Broad-spectrum antibiotics if she develops a fever given her neutropenia. 7. Will order a serologic workup for ITP. /[id number]/MODL MTDD
[2018-06-14] MEDS: LOPERAMIDE HCL 1 MG/5 ML UDL PO PRN (20:06)
[2018-06-14 20:12] LABS: HEPATITIS B CORE AB TOTAL NEGATIVE (NEGATIVE); HEPATITIS B SURFACE ANTIGEN NEGATIVE (NEGATIVE); HEPATITIS C ANTIBODY TOTAL NEGATIVE (NEGATIVE)
[2018-06-15] MEDS: BUDESONIDE 180 MCG MDI IH SCH ×2 (08:28→21:12)
[2018-06-15 08:38] LABS: PLATELET COUNT 7 10^3/uL (150-400)
[2018-06-15] MEDS: LOPERAMIDE HCL 1 MG/5 ML UDL PO PRN (09:16)
[2018-06-15] MEDS: PANTOPRAZOLE SODIUM 40 MG VIAL IVP SCH (09:17)
[2018-06-15] MEDS: DEXAMETHASONE SOD PHOSPHATE IV SCH (09:18)
[2018-06-15] MEDS: D5W IV SCH (09:18)
[2018-06-15] MEDS: MBX SOLN 30 ML BOTTLE PO PRN ×2 (09:18→19:51)
[2018-06-15] MEDS: NS W/ 20 KCl/L 1,000 ML IV SCH ×2 (09:28→22:40)
--- NOTE | 2018-06-15 10:12 | SOAPPROG ---
SOAP Progress Note Assessment/Plan: Assessment: 1) Locally advanced Right breast cancer (stage IIB) s/o C1 TCHP 06/05/18 2) Thrombocytopenia (ITP and recent chemotherapy) 3) Chemo induced diarrhea 4) Chemo induced mucocytis 5) h/o PE 2014, LE DVT apr 2018 Plan: Lower extremity ultrasound shows no evidence of DVT. Continue off of anticoagulation in light of low platelets. No indication for IVC filter. Her low platelets are secondary to chemotherapy and h/o ITP. They were normal at the start of chemotherapy. I suspect that the chemotherapy is playing the bigger roll here. She wants to avoid IVIG, but is open to receiving it over next few days if no improvement. For now I favor continuing the dexamethasone. No indication for platelet transfusion currently as she is not bleeding. We discussed further therapy. Her breast mass has clearly responded. I recommended a second cycle with dose reduction, and no Perjeta. She is willing to consider this. She and her had multiple questions which were answered. Care plan d/w nursing. 06/15/18 10:03 Subjective: Feels somewhat better. Still with oral pain. Diarrhea improved. at bedside. Denies bleeding Objective: Vital Signs Temp Pulse Resp BP Pulse Ox 36.6 C 100 20 120/75 95 06/15/18 07:38 06/15/18 08:32 06/15/18 08:32 06/15/18 07:38 06/15/18 08:32 Microbiology 06/14/18 01:05 Gastrointestinal Tract Panel (PCR) - Final Stool No Organism Detected Laboratory Results 06/15/18 08:15 06/15/18 08:15 06/14/18 06/15/18 06/16/18 05:59 05:59 05:59 Intake Total 1725 1700 Output Total 50 Balance 1675 1700 PT 14.2 SEC (12.0-15.0) 06/14/18 15:40 INR 1.08 (0.83-1.16) 06/14/18 15:40 - Time Spent With Patient Time Spent With Patient: 30 minutes Physical Exam - Physical Exam General Appearance: alert, no apparent distress EENT: other (Grade 1 oral mucocytis / No thrush) Respiratory: lungs clear Cardiac/Chest: regular rate, rhythm, other (Right breast mass is smaller) Abdomen: normal bowel sounds, non-tender, soft Skin: normal color, No rash Neuro/Psych: alert, normal mood/affect, oriented x 3 ICD10 Worksheet Patient Problems: Problems Problem Status Onset Acute renal insufficiency Acute Generalized weakness Acute Hyponatremia Acute Patient on antineoplastic chemotherapy regimen Acute Thrombocytopenia due to drugs Acute UTI (urinary tract infection), bacterial Acute Cardiomyopathy Acute Fatigue Acute Thrombocytopenia Acute
--- NOTE | 2018-06-15 13:45 | HOSPPROG ---
Hospitalist Progress Note Assessment/Plan: 67 yo female with recent diagnosis of breast cancer, who started chemotherapy 1 week ago, pw weakness, diarrhea, poor oral intake, mouth pain and recent epistaxis Possible UTI - Though no fevers or specific urinary symptoms are identified, she has weakness and general malaise -treat with Ceftriaxone, urine culture has grown Klebsiella, awaiting sensitivities Diarrhea - suspect 2/2 chemo - GI path panel negative, continue imodium PRN Pancytopenia - 2/2 chemo. Severe thrombocytopenia * She is refusing any blood products. Previously asked by hospitalist if she would accept blood products if it would save her life emergently and she refused * She is not having any major bleeding * It distinguish she has low platelets a few months ago that was attributed to ITP. It does seem that the degree of thrombocytopenia is not necessarily consistent with chemotherapy for breast cancer but will defer to Oncology * Continue 5 days of IV Dexamethasone, day 2 Breast cancer - followed by Dr. Ozuna at [facility], last chemo 06/05 H/O PE in 2014 - holding eliquis with recent bleeding and low plts CHRISSY - likely pre-renal with GI losses, poor oral intake and appears volume depleted on exam, Cr improved to 0.9 from 1.2 yesterday * Continue IV fluids Hyponatremia - suspect hypovolemic -NS, follow, improved to 139 this AM Hyperbilirubinemia - Mostly unconjugated, could be [place] vs related to infection. Transaminases o/w nl. -trend, consider abd CT to eval for hepatic mets if worsening Hypertension - normotensive on arrival -hold spironolactone, troy, and coreg for now given volume depletion and infection -resume as indicated Weakness - in setting of chemo, diarrhea and suspected UTI -IVF's for hydration -PT/OT Full code DVT PPLX - defer pharm and SCD's with low plts Dispo - inpt, anticipate >48 hrs in hospital with UTI, CHRISSY and weakness. PT/OT evals. Subjective: Patient reports pain in mouth is mildly improved with magic mouthwash. She reports losing taste of foods. Objective: Vital Signs Temp Pulse Resp BP Pulse Ox 36.6 C 115 H 16 120/75 96 06/15/18 11:37 06/15/18 11:37 06/15/18 11:37 06/15/18 11:37 06/15/18 11:37 Microbiology 06/14/18 01:05 Gastrointestinal Tract Panel (PCR) - Final Stool No Organism Detected Laboratory Results 06/15/18 08:15 06/15/18 08:15 06/14/18 06/15/18 06/16/18 05:59 05:59 05:59 Intake Total 1725 1700 Output Total 50 Balance 1675 1700 PT 14.2 SEC (12.0-15.0) 06/14/18 15:40 INR 1.08 (0.83-1.16) 06/14/18 15:40 - Physical Exam Constitutional: no apparent distress Eyes: PERRL Ears, Nose, Mouth, Throat: oral ulcer, dry mucous membranes Cardiovascular: tachycardia Respiratory: no respiratory distress Gastrointestinal: No distension Genitourinary: No rubin in urethra Skin: normal color Musculoskeletal: no joint effusions Neurologic: AAOx3 Psychiatric: interacting appropriately ICD10 Worksheet Patient Problems: Problems Problem Status Onset Acute renal insufficiency Acute Generalized weakness Acute Hyponatremia Acute Patient on antineoplastic chemotherapy regimen Acute Thrombocytopenia due to drugs Acute UTI (urinary tract infection), bacterial Acute Cardiomyopathy Acute Fatigue Acute Thrombocytopenia Acute
[2018-06-15] MEDS: Loratadine [Claritin] 10 MG PO SCH (15:00)
--- NOTE | 2018-06-15 16:07 | ASMTCMCOM ---
CM Note CM Note Notes: 06/15/2018 Case Management Note Met w/pt and to discuss PT recommendation for home care. Both agreeable. Pt lives in [facility]. Faxed multiple referrals. Phone call from Aug with [facility] accepting patient. Aug to visit pt on Sunday. Case Management d/c poc: [facility] RN PT Case Management to follow. Date Signed: 06/15/2018 04:06 PM Electronically Signed By:Fany Jensen RN
[2018-06-15] MEDS: BENZOCAINE 20%/MENTHOL (ORAJEL) GEL 11.9GM TUBE TP PRN (19:51)
[2018-06-16] MEDS: LOPERAMIDE HCL 1 MG/5 ML UDL PO PRN (05:18)
[2018-06-16 06:19] LABS: PLATELET COUNT 5 10^3/uL (150-400)
[2018-06-16] MEDS: Loratadine [Claritin] 10 MG PO SCH (08:33)
[2018-06-16] MEDS: PANTOPRAZOLE SODIUM 40 MG VIAL IVP SCH (09:31)
--- NOTE | 2018-06-16 09:53 | SOAPPROG ---
SOAP Progress Note Assessment/Plan: Assessment: 1) Locally advanced Right breast cancer (stage IIB) s/o C1 TCHP 06/05/18 2) Thrombocytopenia (ITP and recent chemotherapy) 3) Chemo induced diarrhea 4) Chemo induced mucocytis 5) h/o PE 2014, LE DVT apr 2018 Plan: Lower extremity ultrasound shows no evidence of DVT. Continue off of anticoagulation in light of low platelets. No indication for IVC filter. Her low platelets are most likely secondary to chemotherapy given that they were normal at the start of chemotherapy. I suspect that the chemotherapy is playing the bigger roll here. We discussed a platelet transfusion. She has developed bleeding at the site of her breast mass. I think she will likely respond, as I believe her low platelets are chemo induced as opposed to ITP. Risks/benefits of transfusion were discussed with her and her . She consents to transfusion today. Will check 1 hour post transfusion count, and repeat CBC in AM. If still low tomorrow, could consider IVIG. Continue Dexamethasone for now. I will add Nystatin to cover for possible thrush. We discussed further therapy. Her breast mass has clearly responded. I recommended a second cycle with dose reduction, and no Perjeta. She is willing to consider this. She and her had multiple questions which were answered. Care plan d/w nursing. 06/15/18 10:03 06/16/18 09:49 06/16/18 09:53 Subjective: Still with Mucocytis. Reports some oozing at the site of her primary breast mass. Objective: Vital Signs Temp Pulse Resp BP Pulse Ox 36.3 C 104 H 16 110/78 96 06/16/18 08:07 06/16/18 08:07 06/16/18 08:07 06/16/18 08:07 06/16/18 08:07 Laboratory Results 06/16/18 05:00 06/16/18 05:00 06/15/18 06/16/18 06/17/18 05:59 05:59 05:59 Intake Total 1700 600 Balance 1700 600 PT 14.2 SEC (12.0-15.0) 06/14/18 15:40 INR 1.08 (0.83-1.16) 06/14/18 15:40 Physical Exam - Physical Exam General Appearance: alert, no apparent distress EENT: other (? mild thrush. Persistant mucocytis) Respiratory: lungs clear Cardiac/Chest: regular rate, rhythm Abdomen: non-tender, soft Skin: other (Primary Left breast mass with evidence of recent oozing. No active bleeding) Extremities: No calf tenderness Neuro/Psych: alert, normal mood/affect ICD10 Worksheet Patient Problems: Problems Problem Status Onset Acute renal insufficiency Acute Generalized weakness Acute Hyponatremia Acute Patient on antineoplastic chemotherapy regimen Acute Thrombocytopenia due to drugs Acute UTI (urinary tract infection), bacterial Acute Cardiomyopathy Acute Fatigue Acute Thrombocytopenia Acute
--- NOTE | 2018-06-16 10:08 | HOSPPROG ---
Hospitalist Progress Note Assessment/Plan: 67 yo female with recent diagnosis of breast cancer, who started chemotherapy 1 week ago, pw weakness, diarrhea, poor oral intake, mouth pain and recent epistaxis Severe thrombocytopenia * Platelets remain low, 5 today, 7 yesterday * It distinguish she has low platelets a few months ago that was attributed to ITP. It does seem that the degree of thrombocytopenia is consistent with chemotherapy for breast cancer as it has not improved with steroids * Oncology discussed platelet transfusion with patient this morning, se agrees , there is to be a repeat Platelet count 1 hr after * Continue 5 days of IV Dexamethasone, day 3 * If no improvement after platelet transfusion, oncology considering IVIG UTI - UA with no nitrates or LE, but with WBC and bacteria and also no fevers or specific urinary symptoms are identified, likely asymptomatic bacturia -treatment with Ceftriaxone, urine culture has grown Klebsiella, sensitive to Ceftriaxone, will end today after 3 day course Diarrhea - suspect 2/2 chemo - GI path panel negative, continue imodium PRN Pancytopenia - 2/2 chemo. Oral Thrush - Starting Nystatin today Breast cancer - followed by Dr. Ozuna at [facility], last chemo 06/05 H/O PE in 2015 - holding eliquis with recent bleeding and low plts CHRISSY - resolved, was likely pre-renal with GI losses, poor oral intake and appears volume depleted on exam, - Cr improved to 1.0 from 1.2 * Continue IV fluids Hyponatremia - suspect hypovolemic -NS, follow, improved to 139 Hyperbilirubinemia - Mostly unconjugated, could be [place] vs related to infection. Transaminases o/w nl. -trend, consider abd CT to eval for hepatic mets if worsening Hypertension - normotensive on arrival -hold spironolactone, troy, and coreg for now given volume depletion and infection -resume as indicated Weakness - in setting of chemo, diarrhea and suspected UTI -IVF's for hydration -PT/OT Full code DVT PPLX - defer pharm and SCD's with low plts Dispo - inpt, anticipate >48 hrs in hospital with UTI, CHRISSY and weakness. PT/OT evals. Subjective: Patient reports some taste sensation is returning Objective: Vital Signs Temp Pulse Resp BP Pulse Ox 36.3 C 104 H 16 110/78 96 06/16/18 08:07 06/16/18 08:07 06/16/18 08:07 06/16/18 08:07 06/16/18 08:07 Laboratory Results 06/16/18 05:00 06/16/18 05:00 06/15/18 06/16/18 06/17/18 05:59 05:59 05:59 Intake Total 1700 600 Balance 1700 600 PT 14.2 SEC (12.0-15.0) 06/14/18 15:40 INR 1.08 (0.83-1.16) 06/14/18 15:40 - Physical Exam Constitutional: no apparent distress Eyes: PERRL Ears, Nose, Mouth, Throat: oral thrush, oral ulcer, dry mucous membranes Cardiovascular: regular rate and rhythym Respiratory: no respiratory distress Skin: normal color Neurologic: AAOx3 Psychiatric: interacting appropriately ICD10 Worksheet Patient Problems: Problems Problem Status Onset Acute renal insufficiency Acute Generalized weakness Acute Hyponatremia Acute Patient on antineoplastic chemotherapy regimen Acute Thrombocytopenia due to drugs Acute UTI (urinary tract infection), bacterial Acute Cardiomyopathy Acute Fatigue Acute Thrombocytopenia Acute
[2018-06-16] MEDS: BUDESONIDE 180 MCG MDI IH SCH ×2 (10:22→20:49)
[2018-06-16] MEDS: DEXAMETHASONE SOD PHOSPHATE IV SCH (10:30)
[2018-06-16] MEDS: D5W IV SCH (10:30)
[2018-06-16] MEDS: NS W/ 20 KCl/L 1,000 ML IV SCH (13:16)
[2018-06-16] MEDS: NYSTATIN SUSP 500000 UNIT/5 ML UD LIQ PO SCH ×3 (13:16→21:21)
[2018-06-16 17:49] LABS: PLATELET COUNT 40 10^3/uL (150-400)
[2018-06-16] MEDS: MBX SOLN 30 ML BOTTLE PO PRN (21:19)
[2018-06-17] MEDS: MBX SOLN 30 ML BOTTLE PO PRN ×3 (03:34→21:08)
[2018-06-17] MEDS: NYSTATIN SUSP 500000 UNIT/5 ML UD LIQ PO SCH ×4 (05:53→21:09)
[2018-06-17 06:17] LABS: PLATELET COUNT 36 10^3/uL (150-400)
[2018-06-17] MEDS: PANTOPRAZOLE SODIUM 40 MG VIAL IVP SCH (08:44)
[2018-06-17] MEDS: DEXAMETHASONE SOD PHOSPHATE IV SCH (08:45)
[2018-06-17] MEDS: Loratadine [Claritin] 10 MG PO SCH (08:45)
[2018-06-17] MEDS: D5W IV SCH (08:45)
[2018-06-17] MEDS: LOPERAMIDE HCL 1 MG/5 ML UDL PO PRN (08:58)
[2018-06-17] MEDS: BUDESONIDE 180 MCG MDI IH SCH ×2 (09:11→19:55)
--- NOTE | 2018-06-17 11:10 | SOAPPROG ---
SOAP Progress Note Assessment/Plan: Assessment: Assessment: 1) Locally advanced Right breast cancer (stage IIB) s/o C1 TCHP 06/05/18 2) Thrombocytopenia (ITP and recent chemotherapy), decent response to plt txn 3) Chemo induced diarrhea, better 4) Chemo induced mucocytis 5) h/o PE 2014, LE DVT apr 2018, no evidence of current dvt on recent u/s Plan:Last day iv dex today, check plts in am, if falling, plan is for ivig if she allows. supportive care 06/17/18 11:06 Subjective: Still feels poorly, mouth pain, diarrhea better Objective: Vital Signs Temp Pulse Resp BP Pulse Ox 97.6 F 93 18 129/72 H 97 06/17/18 08:02 06/17/18 08:02 06/17/18 08:02 06/17/18 08:02 06/17/18 08:02 Laboratory Results 06/17/18 06:00 06/17/18 06:00 06/16/18 06/17/18 06/18/18 05:59 05:59 05:59 Intake Total 600 550 Balance 600 550 PT 14.2 SEC (12.0-15.0) 06/14/18 15:40 INR 1.08 (0.83-1.16) 06/14/18 15:40 Physical Exam - Physical Exam General Appearance: mild distress EENT: other (erythema pharynx) Respiratory: normal breath sounds Cardiac/Chest: regular rate, rhythm Abdomen: normal bowel sounds, non-tender ICD10 Worksheet Patient Problems: Problems Problem Status Onset Acute renal insufficiency Acute Generalized weakness Acute Hyponatremia Acute Patient on antineoplastic chemotherapy regimen Acute Thrombocytopenia due to drugs Acute UTI (urinary tract infection), bacterial Acute Cardiomyopathy Acute Fatigue Acute Thrombocytopenia Acute
--- NOTE | 2018-06-17 12:22 | ASMTCMCOM ---
CM Note CM Note Notes: Patient plan of care reviewed in rounds. 67 year old female s/p bilateral mastectomies in with low platelet count thought to be r/t chemotherapy.She will have C with [facility] services. CM to follow for needs. Plan: Dc to home with HHC RN. Date Signed: 06/17/2018 12:22 PM Electronically Signed By:Brandi Fernandes RN
[2018-06-17] MEDS: NS W/ 20 KCl/L 1,000 ML IV SCH (16:34)
--- NOTE | 2018-06-17 17:40 | HOSPPROG ---
Hospitalist Progress Note Assessment/Plan: * Breast cancer - chemo * ITP -s/p platelet transfusion with good result -last dose IV steroids today -if platelets drop again, may need IVIG * Severe mucositis - chemo induced -continue MBX, lidocaine * UTI - Klebsiella -IV ceftriaxone * h/o massive PE 2014 - holding Eliquis due to low platelets * HTN -BP running low - holding meds * Diarrhea - chemo induced -Cdiff negative -okay for Imodium * AICD - previous h/o LV dysfunction l Subjective: Still with severe mucositits Objective: Vital Signs Temp Pulse Resp BP Pulse Ox 36.9 C 97 14 122/88 H 96 06/17/18 15:46 06/17/18 11:14 06/17/18 15:46 06/17/18 15:46 06/17/18 15:46 Laboratory Results 06/17/18 06:00 06/17/18 06:00 06/16/18 06/17/18 06/18/18 05:59 05:59 05:59 Intake Total 600 550 833 Balance 600 550 833 PT 14.2 SEC (12.0-15.0) 06/14/18 15:40 INR 1.08 (0.83-1.16) 06/14/18 15:40 BLE US - negative for DVT d/w Dr. Diaz regarding plan for platelets - Physical Exam Constitutional: no apparent distress, appears nourished, not in pain Ears, Nose, Mouth, Throat: oral ulcer Cardiovascular: regular rate and rhythym, no murmur, rub, or gallop Respiratory: no respiratory distress, no rales or rhonchi, clear to auscultation Gastrointestinal: normoactive bowel sounds, soft, non-tender abdomen, no palpable masses Skin: no rashes or abrasions, no fluctuance, no induration Neurologic: AAOx3, sensation intact bilaterally Psychiatric: interacting appropriately, not anxious, not encephalopathic, thought process linear ICD10 Worksheet Patient Problems: Problems Problem Status Onset Cardiomyopathy Acute Thrombocytopenia Acute Fatigue Acute Patient on antineoplastic chemotherapy regimen Acute Generalized weakness Acute Acute renal insufficiency Acute Thrombocytopenia due to drugs Acute UTI (urinary tract infection), bacterial Acute Hyponatremia Acute
[2018-06-18 00:38] LABS: PLATELET COUNT 16 10^3/uL (150-400)
--- NOTE | 2018-06-18 02:33 | HOSPPROG ---
Hospitalist Progress Note Assessment/Plan: XC: STAT team called for change in mental status. Per RN, patient got up to use the restroom and upon returning to bed became minimally responsive. At the time of my evaluation is she is alert but not responding. She has a symmetrical face , pupils, and moves all extremities. I obtained CTH noting thrombocytopenia, which revealed no acute changes. Laboratory evaluation, including lactate and ABG, were largely stable from prior values. UA did not reveal repeat infection. Noting her VS remain within normal limits, I will instead opt for observation at this time. If mental status does not clear, would consider MRI in the morning. GEN: Alert but not responding to commands CV: RRR, no m/r/g RESP: CTAB, no w/r/r ABD: Soft, no guarding/rebound EXT: Warm, pulses 2+ throughout NEURO: Not following commands, no focal neurologic deficits I personally spent 30 minutes of critical care time evaluation patient and coordinating care. Objective: Vital Signs Temp Pulse Resp BP Pulse Ox 37.2 C 97 24 H 145/82 H 100 06/18/18 01:45 06/18/18 01:45 06/18/18 01:45 06/18/18 01:45 06/18/18 01:45 Laboratory Results 06/18/18 00:20 06/18/18 00:20 06/16/18 06/17/18 06/18/18 05:59 05:59 05:59 Intake Total 170 203 7942 Balance 426 519 0456 PT 14.2 SEC (12.0-15.0) 06/14/18 15:40 INR 1.08 (0.83-1.16) 06/14/18 15:40 ICD10 Worksheet Patient Problems: Problems Problem Status Onset Cardiomyopathy Acute Thrombocytopenia Acute Fatigue Acute Patient on antineoplastic chemotherapy regimen Acute Generalized weakness Acute Acute renal insufficiency Acute Thrombocytopenia due to drugs Acute UTI (urinary tract infection), bacterial Acute Hyponatremia Acute
[2018-06-18] MEDS ORDERED: NS 500 ML IV ONE (03:37)
[2018-06-18 04:32] LABS: INR 1.23 (0.83-1.16); PROTIME(PATIENT) 15.7 SEC (12.0-15.0)
[2018-06-18 04:36] LABS: PLATELET COUNT 14 10^3/uL (150-400)
[2018-06-18] MEDS: NYSTATIN SUSP 500000 UNIT/5 ML UD LIQ PO SCH ×4 (05:31→22:44)
[2018-06-18] MEDS: BUDESONIDE 180 MCG MDI IH SCH ×2 (08:53→20:09)
[2018-06-18] MEDS: Loratadine [Claritin] 10 MG PO SCH (08:54)
[2018-06-18] MEDS: PANTOPRAZOLE SODIUM 40 MG VIAL IVP SCH (08:54)
--- NOTE | 2018-06-18 10:18 | SOAPPROG ---
SOAP Progress Note Assessment/Plan: Assessment: Assessment: 1) Locally advanced Right breast cancer (stage IIB) s/o C1 TCHP 06/05/18 2) Thrombocytopenia (ITP and recent chemotherapy), decent response to plt txn 3) Chemo induced diarrhea, better 4) Chemo induced mucocytis 5) h/o PE 2014, LE DVT apr 2018, no evidence of current dvt on recent u/s 6)Altered MS, event last night noted in chart. Negative head ct.? seizure versus brainstem event Plan:Neuro consult, EEG, transfuse plts today, may need ivig/nplate, holding off on ivig for now 06/17/18 11:06 06/18/18 10:13 Subjective: not responsive Objective: Vital Signs Temp Pulse Resp BP Pulse Ox 98.4 F 105 H 20 136/82 H 97 06/18/18 09:19 06/18/18 09:19 06/18/18 06:00 06/18/18 09:19 06/18/18 09:19 Microbiology 06/18/18 04:05 Respiratory Panel (PCR) - Final Nasal, Sinus - Swab No Organism Detected Laboratory Results 06/18/18 04:12 06/17/18 06/18/18 06/19/18 05:59 05:59 05:59 Intake Total 550 2533 Balance 550 2533 PT 15.7 SEC (12.0-15.0) H 06/18/18 04:12 INR 1.23 (0.83-1.16) H 06/18/18 04:12 Physical Exam - Physical Exam General Appearance: unresponsive Respiratory: lungs clear Cardiac/Chest: regular rate, rhythm Abdomen: normal bowel sounds, non-tender Neuro/Psych: No alert ICD10 Worksheet Patient Problems: Problems Problem Status Onset Acute renal insufficiency Acute Generalized weakness Acute Hyponatremia Acute Patient on antineoplastic chemotherapy regimen Acute Thrombocytopenia due to drugs Acute UTI (urinary tract infection), bacterial Acute Cardiomyopathy Acute Fatigue Acute Thrombocytopenia Acute
[2018-06-18] MEDS ORDERED: NS 1,000 ML IV SCH (10:30)
[2018-06-18] MEDS ORDERED: IOPAMIDOL (ISOVUE 370) 100 ML BTL IV ONE (11:40)
--- NOTE | 2018-06-18 13:04 | ASMTCMCOM ---
CM Note CM Note Notes: Patient plan of care reviewed in am rounds. She has suffered some event since last night and her platelet count was again low. Some improvement in neurological response but not at baseline. CM to follow. Plan: TBD Date Signed: 06/18/2018 12:38 PM Electronically Signed By:Brandi Fernandes RN
--- NOTE | 2018-06-18 13:19 | NEUROPROG ---
Assessment: [id number] - Neurology Consult: - CC: Unresponsiveness - HPI: Pt undergoing chemotherapy for BRCA was admitted to [facility] on 06/13/18 for weakness , diarrhea, and malaise. She had stopped her Eliquis 2 days prior to admission due to bleeding (she was on this medication for prior PE in 2014). She was noted to have pancytopenia felt secondary to chemotherapy. She was also noted to have acute renal injury and hyponatremia likely from GI losses and poor PO intake. Oncology saw the patient and felt she had ITP to explain her low blood count as well as BRCA. Pt also felt to have a UTI which was treated. She was stable and planned to discharge on 06/18/18 but in the steel cutter of she was noted to go to the bathroom and when she returned to bed she stopped responding to people. Head CT was normal. I initially saw her on 06/18/18. Her neurologic exam was nonfocal. The patient was lying in bed with her eyes closed. She briskly withdraws from pain and forcefully closes her eyes when I attempt to open them. I suspect she is giving poor effort to explain her decreased responsiveness. Given her multiple medical conditions she may have toxic metabolic encephalopathy. STAT head/neck CTA were unremarkable. Cannot get a brain MRI due to pacemaker. I will get an EEG to ensure no seizures and give a trial of Keppra 500 mg bid. - PMHx: BRCA on chemotherapy, HTN, GERD, PE 2015 on Eliquis, asthma, ICD/cardiac pacemaker for LV dysfunction after PE, ITP, DVT 2018 - SHx: former tobacco use FHx: no cancer or DVT - ROS: cannot test due to pace mental status - O: VS reviewed General: does not respond to voice Eyes: Fundoscopic exam not able to visualize optic disks CV: Heart RRR, no murmur, no carotid bruit Lungs: Clear to auscultation bilaterally, no rhonchi or rales Neuro: - Mental: pt lying in bed with eyes closed, volitional closes eyes when I attempt to open them - Cranial Nerves: . II: PERRL . III/IV/: eyes conjugate . V: cannot test . VII: face symmetric . VIII: cannot test . IX/X: cannot test . XI: cannot test . XII: cannot test - Motor: . Tone: normal tone in all 4 extremity . Strength: withdraws all extrem from pain - Reflexes: B/L bic/BR/patella 2/4 - Sensory: withdraws all extrem from pain - Coord: cannot test - Gait: cannot test - Labs: 06/18/18- CBC Hct 27.6L Plt 14L - Rads: 06/18/18- Head CT: no acute changes noted (I Personally visualized the images on 06/18/18) 06/18/18- CTA head/neck: no acute changes, incidental bovine arch - Assessment: 1. Decreased responsiveness: Pt undergoing chemotherapy for BRCA was admitted to [facility] on 06/13/18 for weakness, diarrhea, and malaise. She had stopped her Eliquis 2 days prior to admission due to bleeding (she was on this medication for prior PE in 2014). She was noted to have pancytopenia felt secondary to chemotherapy. She was also noted to have acute renal injury and hyponatremia likely from GI losses and poor PO intake. Oncology saw the patient and felt she had ITP to explain her low blood count as well as BRCA. Pt also felt to have a UTI which was treated. She was stable and planned to discharge on but in the steel cutter of 06/18/18 she was noted to go to the bathroom and when she returned to bed she stopped responding to people. Head CT was normal. I initially saw her on 06/18/18. Her neurologic exam was nonfocal. The patient was lying in bed with her eyes closed. She briskly withdraws from pain and forcefully closes her eyes when I attempt to open them. I suspect she is giving poor effort to explain her decreased responsiveness. Given her multiple medical conditions she may have toxic metabolic encephalopathy. STAT head/neck CTA were unremarkable. Cannot get a brain MRI due to pacemaker. I will get an EEG to ensure no seizures and give a trial of Keppra 500 mg bid. - 2. BRCA on chemotherapy 3. ITP with low platelet 4. UTI 5. Hx of PE but cannot use Eliquis due to low platelet 6. Pacemaker so cannot have MRI - Plan: - Trial of Keppra 500 mg bid - EEG - Neurology will continue to follow closely Objective: Vital Signs Temp Pulse Resp BP Pulse Ox 36.9 C 105 H 20 136/82 H 97 06/18/18 09:19 06/18/18 09:19 06/18/18 06:00 06/18/18 09:19 06/18/18 09:19 Microbiology 06/18/18 04:05 Respiratory Panel (PCR) - Final Nasal, Sinus - Swab No Organism Detected Laboratory Results 06/18/18 04:22 06/18/18 04:12 06/17/18 06/18/18 06/19/18 05:59 05:59 05:59 Intake Total 550 2533 Balance 550 2533 PT 15.7 SEC (12.0-15.0) H 06/18/18 04:12 INR 1.23 (0.83-1.16) H 06/18/18 04:12 Allergies/Adverse Reactions: latex Allergy (Verified 06/13/18 17:47) Rash levofloxacin [From Levaquin] Allergy (Verified 06/13/18 17:47) Vomiting Sulfa (Sulfonamide Antibiotics) Allergy (Verified 06/13/18 17:47) Vomiting ALL ANTIBIOTIC Allergy (Uncoded 05/15/18 11:51) nausea
[2018-06-18] MEDS: levETIRAcetam 500MG/NACL 100 ML IV SCH ×2 (13:47→21:15)
--- NOTE | 2018-06-18 15:15 | HOSPPROG ---
Hospitalist Progress Note Assessment/Plan: Stat team called last night when patient became acutely unresponsive while up to the bathroom. Head Ct negative. She remains very altered today, still not verbal or following commands. No seizure activity noted. VS remain stable except for noted hyperventilation, mild tachycardia. Neuro exam non- focal, but patient remained completely unresponsive with only withdrawal to deep stimulation. Concern for brainstem CVA vs. seizure with post-ictal state. Neurology urgently consulted and d/w Dr. Young. Empiric Keppra started and patient to get EEG today. Unable to do MRI due to AICD. I asked cardiology to evaluation whether this is MRI compatible device. CTA head and neck negative. Dr. Young evaluated and felt there was a volitional component to her unresponsiveness. His suspicion for CVA or seizure lowered after he examined the patient. 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 -s/p platelet transfusion -s/p IV steroids -platelets dropped again - will likely need IVIG * Severe mucositis - chemo induced -continue MBX, lidocaine * UTI - Klebsiella -s/p IV ceftriaxone * h/o massive PE 2014 - Eliquis stopped when patient diagnosed with ITP -shortly after DC Eliquis, diagnosed with RLE DVT 04/30/18 -seems to be quite hypercoagulable -now holding Eliquis again due to severe thrombocytopenia -repeat US shows recent DVT now gone -restart Eliquis as soon as platelet count reasonable * HTN -resume home BP meds * Diarrhea - chemo induced -Cdiff negative -okay for Imodium * AICD - previous h/o LV dysfunction * Metabolic encephalopathy - remains poorly responsive at this time -per neurology poor effort contributing -EEG pending -consider MRI if device compatible - d/w Nikki Norman - sees Dr. Blunt at outpatient [facility] time - additional 1 hour in addition to time spent by Dr. Connors Subjective: Remains unresponsive Objective: Vital Signs Temp Pulse Resp BP Pulse Ox 36.9 C 105 H 20 136/82 H 97 06/18/18 09:19 06/18/18 09:19 06/18/18 06:00 06/18/18 09:19 06/18/18 09:19 Microbiology 06/18/18 04:05 Respiratory Panel (PCR) - Final Nasal, Sinus - Swab No Organism Detected Laboratory Results 06/18/18 04:22 06/18/18 04:12 06/17/18 06/18/18 06/19/18 05:59 05:59 05:59 Intake Total 550 2533 Balance 550 2533 PT 15.7 SEC (12.0-15.0) H 06/18/18 04:12 INR 1.23 (0.83-1.16) H 06/18/18 04:12 d/w Gloria Martinez CTA head/neck - negative - Physical Exam Constitutional: obese, other (unresponsive, lying in bed, minimal spontaneous movement) Eyes: PERRL (unable to fully assess as patient clenching eyes shut, rolled back in head), No icteric sclera Cardiovascular: regular rate and rhythym, no murmur, rub, or gallop Respiratory: no respiratory distress, no rales or rhonchi, clear to auscultation Gastrointestinal: normoactive bowel sounds, soft, non-tender abdomen, no palpable masses Skin: no rashes or abrasions, no fluctuance, no induration Neurologic: weakness (diffuse, withdraws equally to pain), No AAOx3 Psychiatric: encephalopathic, poor insight, poor judgement, poor memory, No interacting appropriately, No agitated ICD10 Worksheet Patient Problems: Problems Problem Status Onset Cardiomyopathy Acute Thrombocytopenia Acute Fatigue Acute Patient on antineoplastic chemotherapy regimen Acute Generalized weakness Acute Acute renal insufficiency Acute Thrombocytopenia due to drugs Acute UTI (urinary tract infection), bacterial Acute Hyponatremia Acute
[2018-06-18] MEDS: CARVEDILOL 25 MG TAB PO SCH (21:16)
[2018-06-19] MEDS ORDERED: ACETAMINOPHEN 650 MG SUPP PR PRN (00:34)
[2018-06-19] MEDS: NYSTATIN SUSP 500000 UNIT/5 ML UD LIQ PO SCH ×4 (05:22→21:56)
[2018-06-19] MEDS: BUDESONIDE 180 MCG MDI IH SCH ×2 (08:17→21:36)
--- NOTE | 2018-06-19 09:40 | CPEEG ---
DATE OF STUDY: 06/18/2018 This is an EEG performed for 20 minutes. There is some generalized slowing noted in the 7-8 Hz range , but there are no epileptiform discharges or seizure activity seen. IMPRESSION: Overall slightly abnormal EEG due to generalized slowing. The generalized slowing could be due to a drowsy state. There are no epileptiform discharges or seizure activity noted. /[id number]/MODL
--- NOTE | 2018-06-19 10:00 | NEUROPROG ---
Assessment: [id number] - Neurology Consult: - CC: F/U for somnolence - Narrative Summary: Pt undergoing chemotherapy for BRCA was admitted to [facility] on 06/13/18 for weakness , diarrhea, and malaise. She had stopped her Eliquis 2 days prior to admission due to bleeding (she was on this medication for prior PE in 2014). She was noted to have pancytopenia felt secondary to chemotherapy. She was also noted to have acute renal injury and hyponatremia likely from GI losses and poor PO intake. Oncology saw the patient and felt she had ITP to explain her low blood count as well as BRCA. Pt also felt to have a UTI which was treated. She was stable and planned to discharge on 06/18/18 but in the doll wig maker rooted hair of she was noted to go to the bathroom and when she returned to bed she stopped responding to people. Head CT was normal. I initially saw her on 06/18/18. Her neurologic exam was nonfocal. The patient was lying in bed with her eyes closed. She briskly withdraws from pain and forcefully closes her eyes when I attempt to open them. I suspect she is giving poor effort to explain her decreased responsiveness. Given her multiple medical conditions she may have toxic metabolic encephalopathy. STAT head/neck CTA were unremarkable. Cannot get a brain MRI due to pacemaker. I will get an EEG to ensure no seizures and give a trial of Keppra 500 mg bid. - HPI: F/U 06/19/18. EEG showed some mild generalized slowing but no seizure activity so Keppra stopped. Pt not changed this morning. Still does not respond to verbal commands. She will briskly withdraw all 4 extrem to pain and with sternal rub she opened her eyes and attempted to use her left hand to push my hand away suggesting encephalopathy. I suspect she likely has toxic-metabolic encephalopathy. Small stroke or venous thrombosis is possible but seems unlikely. I will evaluate for any evolving stroke with head CT and any venous thrombosis with CT venogram head. I discussed case with hospitalist and oncologist. We considered a spinal tap but she does not clinically appear to have meningitis and a spinal tap would have bleeding risk given low platelets so we will hold off on that for now and watch her for another day. I discussed all this with her and he agrees with the plan. - PMHx: BRCA on chemotherapy, HTN, GERD, PE 2015 on Eliquis, asthma, ICD/cardiac pacemaker for LV dysfunction after PE, ITP, DVT 2018 - SHx: former tobacco use FHx: no cancer or DVT - ROS: cannot test due to pace mental status - Labs: 06/18/18- CBC Hct 27.6L Plt 14L - Rads: 06/18/18- Head CT: no acute changes noted (I Personally visualized the images on 06/18/18) 06/18/18- CTA head/neck: no acute changes, incidental bovine arch 06/18/18- EEG: some generalized slowing but no seizure activity - Assessment: 1. Toxic Metabolic Encephalopathy: EEG showed some mild generalized slowing but no seizure activity so Keppra stopped. Pt not changed this morning. Still does not respond to verbal commands. She will briskly withdraw all 4 extrem to pain and with sternal rub she opened her eyes and attempted to use her left hand to push my hand away suggesting encephalopathy. I suspect she likely has toxic-metabolic encephalopathy. Small stroke or venous thrombosis is possible but seems unlikely. I will evaluate for any evolving stroke with head CT and any venous thrombosis with CT venogram head. I discussed case with hospitalist and oncologist. We considered a spinal tap but she does not clinically appear to have meningitis and a spinal tap would have bleeding risk given low platelets so we will hold off on that for now and watch her for another day. I discussed all this with her and he agrees with the plan. - 2. BRCA on chemotherapy 3. ITP with low platelet 4. UTI 5. Hx of PE but cannot use Eliquis due to low platelet 6. Pacemaker so cannot have MRI - Plan: - Head CT and CT venogram - Neurology will continue to follow closely Objective: Vital Signs Temp Pulse Resp BP Pulse Ox 37.2 C 110 H 39 H 136/72 H 96 06/19/18 07:12 06/19/18 08:18 06/19/18 08:18 06/19/18 05:54 06/19/18 08:18 Microbiology 06/18/18 04:05 Respiratory Panel (PCR) - Final Nasal, Sinus - Swab No Organism Detected Laboratory Results 06/19/18 06:00 06/19/18 06:00 06/18/18 06/19/18 06/20/18 05:59 05:59 05:59 Intake Total 2533 1100 Balance 2533 1100 PT 15.7 SEC (12.0-15.0) H 06/18/18 04:12 INR 1.23 (0.83-1.16) H 06/18/18 04:12 Allergies/Adverse Reactions: latex Allergy (Verified 06/13/18 17:47) Rash levofloxacin [From Levaquin] Allergy (Verified 06/13/18 17:47) Vomiting Sulfa (Sulfonamide Antibiotics) Allergy (Verified 06/13/18 17:47) Vomiting ALL ANTIBIOTIC Allergy (Uncoded 05/15/18 11:51) nausea
--- NOTE | 2018-06-19 10:20 | HOSPPROG ---
Hospitalist Progress Note Assessment/Plan: * Acute encephalopathy - remains poorly responsive but grossly without focal deficit, unclear etiology -EEG with slight generalized slowing but no epileptiform changes, discontinue keppra -Non-con CT head, CTA head/neck negative -Check CT venogram to eval for cerebral venous thrombosis -If still altered tomorrow plan to transfuse plts and get LP -Reportedly unable to get MRI with ICD, will confirm with cardiology -Odd presentation for paraneoplastic syndrome, will hold on sending this panel for now -Concern that this could be somatoform disorder but need to rule out above first * Thrombocytopenia - combo of ITP and chemo-induced -responding to plt transfusions -s/p IV steroids -plts slightly improved today, hold on IVIG * Tachypnea - maintaining O2 sats but I am worried about her respiratory status ; ABG yesterday with mild resp alkalosis -head of bed>30 degrees to prevent aspiration -considered CTA chest to re-eval for PE but would not mash filter 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 as unable to anticoagulate and no strong indication for lytic therapy * UTI - Klebsiella oxytoca -s/p IV ceftriaxone, will confirm with pharmacy that she received course of this -repeat UA 06/18 without signs of active infection * Hypercoaguable state - massive PE in 2014, RLE DVT 04/2018 when off AC, 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 Per , she has LUE swelling. She has been tachypneic since yesterday AM. Low grade temp to 38.1 overnight. Objective: Vital Signs Temp Pulse Resp BP Pulse Ox 37.2 C 110 H 39 H 136/72 H 96 06/19/18 07:12 06/19/18 08:18 06/19/18 08:18 06/19/18 05:54 06/19/18 08:18 Microbiology 06/18/18 04:05 Respiratory Panel (PCR) - Final Nasal, Sinus - Swab No Organism Detected Laboratory Results 06/19/18 06:00 06/19/18 06:00 06/18/18 06/19/18 06/20/18 05:59 05:59 05:59 Intake Total 2533 1100 Balance 2533 1100 PT 15.7 SEC (12.0-15.0) H 06/18/18 04:12 INR 1.23 (0.83-1.16) H 06/18/18 04:12 - Physical Exam Constitutional: not in pain, other (unresponsive) Eyes: PERRL, anicteric sclera Cardiovascular: tachycardia, edema (LUE) Respiratory: other (tachypneic ), No expiratory wheeze Gastrointestinal: normoactive bowel sounds, soft, non-tender abdomen, no palpable masses Skin: other (R chest port c/d/i, L pacer pocket c/d/i) Neurologic: other (not alert or oriented, down-going toes bilaterally, no ankle clonus, moving all but LUE to pain, no meningismus) Psychiatric: encephalopathic ICD10 Worksheet Patient Problems: Problems Problem Status Onset Acute renal insufficiency Acute Generalized weakness Acute Hyponatremia Acute Patient on antineoplastic chemotherapy regimen Acute Thrombocytopenia due to drugs Acute UTI (urinary tract infection), bacterial Acute Cardiomyopathy Acute Fatigue Acute Thrombocytopenia Acute
--- NOTE | 2018-06-19 10:20 | ASMTCMCOM ---
CM Note CM Note Notes: No significant improvement in neurological status. See notes from neurology. at bedside. NTBD at this time. Plan: TBD Date Signed: 06/19/2018 10:19 AM Electronically Signed By:Brandi Fernandes RN
--- NOTE | 2018-06-19 10:30 | SOAPPROG ---
SOAP Progress Note Assessment/Plan: Assessment: Assessment: 1) Locally advanced Right breast cancer (stage IIB) s/o C1 TCHP 06/05/18 2) Thrombocytopenia (ITP and recent chemotherapy), decent response to plt txn 3) Chemo induced diarrhea, better 4) Chemo induced mucocytis 5) h/o PE 2014, LE DVT apr 2018, no evidence of current dvt on recent u/s 6) Altered MS she is basically unresponsive except to pain, etiology unclear.EEG does not show seizure activity, ct does not show bleed, checking ct venogram today Plan:Appreciate Neuro consult, holding off on ivig for now,possible LP tomorrow if no change, will need plt support 06/17/18 11:06 06/18/18 10:13 06/19/18 10:23 Subjective: Not responsive Objective: Vital Signs Temp Pulse Resp BP Pulse Ox 98.9 F 110 H 39 H 136/72 H 96 06/19/18 07:12 06/19/18 08:18 06/19/18 08:18 06/19/18 05:54 06/19/18 08:18 Microbiology 06/18/18 04:05 Respiratory Panel (PCR) - Final Nasal, Sinus - Swab No Organism Detected Laboratory Results 06/19/18 06:00 06/19/18 06:00 06/18/18 06/19/18 06/20/18 05:59 05:59 05:59 Intake Total 2533 1100 Balance 2533 1100 PT 15.7 SEC (12.0-15.0) H 06/18/18 04:12 INR 1.23 (0.83-1.16) H 06/18/18 04:12 Physical Exam - Physical Exam General Appearance: unresponsive Respiratory: normal breath sounds Cardiac/Chest: regular rate, rhythm Abdomen: normal bowel sounds, non-tender ICD10 Worksheet Patient Problems: Problems Problem Status Onset Acute renal insufficiency Acute Generalized weakness Acute Hyponatremia Acute Patient on antineoplastic chemotherapy regimen Acute Thrombocytopenia due to drugs Acute UTI (urinary tract infection), bacterial Acute Cardiomyopathy Acute Fatigue Acute Thrombocytopenia Acute
[2018-06-19] MEDS: CARVEDILOL 25 MG TAB PO SCH ×2 (10:41→18:11)
[2018-06-19] MEDS: BENAZEPRIL HCL 10 MG TAB PO SCH (10:42)
[2018-06-19] MEDS: Loratadine [Claritin] 10 MG PO SCH (10:42)
[2018-06-19] MEDS: SPIRONOLACTONE 25 MG TAB PO SCH (10:43)
[2018-06-19] MEDS: levETIRAcetam 500MG/NACL 100 ML IV SCH (10:43)
[2018-06-19] MEDS ORDERED: IOPAMIDOL (ISOVUE 370) 100 ML BTL IV ONE ×2 (12:16→17:43)
--- NOTE | 2018-06-19 16:10 | ECHO ---
[email or web address] [address] Main: [phone] Fax: Transthoracic Echocardiogram Name: VIRGINIA COREA MR#: [id number] Study Date: 06/19/2018 Study Time: 03:21 PM Date of : 1950 Age: 67 year(s) Height: 162.6 cm (64 in.) Weight: 98.43 kg (217 lb.) BSA: 2.03 m2 Gender: Female Examination: Echo Indication: Subacute CVA, Hx of Pacemaker, Breast CA, Low responsive, Chemotherapy Image Quality: Technically Difficult Contrast: Requested by: Venkatesh Chiu BP: 107 mmHg/66 mmHg Heart Rate: Rhythm: Indication: Subacute CVA, Hx of Pacemaker, Breast CA, Low responsive, Chemotherapy Procedure Staff Investigator Internal Revenue: Darryl Dunn RDCS Reading Physician: Cirilo Katz MD Requesting Provider: Conclusions: Moderately reduced systolic LV function. The ejection fraction is estimated to be 35-40 %. There is apical hypokinesis.. There is a pacemaker lead noted in the right ventricle. Mild mitral valve regurgitation is present. Mild tricuspid regurgitation is present. Right Ventricular systolic pressure is measured at 51 mmHg. Measurements: Chambers Valvular Assessment AV/MV Valvular Assessment TV/PV Normal Normal Normal Name Value Range Name Value Range Name Value Range [place] (MM): 2.5 cm (2.2 cm-3.7 AV Vmax: 1.09 m/s (1 m/s-1.7 TR Vmax: 3.38 mm/s ( - ) cm) m/s) TR PGmax: 46 mmHg ( - ) IVSd (2D): 0.9 cm (0.6 cm-1.1 AV maxP mmHg ( - ) syst. PAP: 51 mmHg ( - ) cm) LVOT Vmax: 0.78 m/s (0.7 m/s-1.1 PV Vmax: 0.98 m/s (0.6 m/s-0.9 LVDd (2D): 4.4 cm (3.9 cm-5.3 m/s) m/s) cm) MV E Vmax: 1.44 m/s ( - ) PV PGmax: 4 mmHg ( - ) LVDs (2D): 3.1 cm (2.1 cm-4 cm) LVPWd (2D): 1.0 cm ( - ) LVEF (BP): 38 % (>=55 %) EF Range: 35-40 % Continued Measurements: Chambers Valvular Assessment TV/PV Name Value Name Value LADs Lon.5 cm CVP (est.): 5 mmHg Patient: VIRGINIA COREA Study Date: 06/19/2018 Page 1 of 2 03:21 PM LA Area: 14.5 cm2 LA Volume: 41 ml LA Volume Index: 20.2 ml/m2 Findings: Left Ventricle: Normal size left ventricle. Moderately reduced systolic LV function. The ejection fraction is estimated to be 35-40 %. Grade 1 diastolic dysfunction (abnormal relaxation). There is apical hypokinesis.. Right Ventricle: Normal size right ventricle. Normal RV function. There is a pacemaker lead noted in the right ventricle. Heart rate during exam is in the 120's. Left Atrium: The left atrium is normal in size. Right Atrium: The right atrium is normal in size. Mitral Valve: There is mild thickening of the mitral valve leaflets. Mild mitral valve regurgitation is present. Aortic Valve: Mild aortic cusp calcification is noted. There is no significant aortic valve regurgitation. No aortic valve stenosis is present. Tricuspid Valve: The tricuspid valve appears normal. Mild tricuspid regurgitation is present. The pulmonary artery pressure is mild to moderately increased. Right Ventricular systolic pressure is measured at 51 mmHg. Pulmonic Valve: The pulmonic valve is normal in appearance and function. Aorta: The aorta is normal. Pericardium: No pericardial effusion. Exam Comments: (No Signature Object) Patient: VIRGINIA COREA Study Date: 06/19/2018 Page 2 of 2 03:21 PM [id number]
[2018-06-19] MEDS ORDERED: PROPOFOL/EMULSION 1,000 MG/100 ML BOTTLE IV ONE (18:29)
[2018-06-19] MEDS ORDERED: PHENYLEPHRINE HCL 100 MCG/ML SYR ONE (18:43)
--- NOTE | 2018-06-19 18:46 | PDGENHP ---
History and Physical - Chief Complaint Respiratory distress - History of Present Illness Melany is a 67-year-old female transfer to the ICU for progressive obtundation and progressive respiratory failure. She has locally invasive breast cancer admitted 06/13/2018 with malaise, weakness, and diarrhea. Per report she did not have any confusion or changes in mental status when she was admitted. She has a history of DVT and PE and was on Eliquis prior to admission. She has also been receiving chemotherapy and developed cytopenia with thrombocytopenia. It was unclear if patient's thrombocytopenia was related to chemotherapy versus ITP. She was given steroids and Rituxan previously. Patient was also treated for a UTI this admission. There were plans for discharge yesterday, , but she became acutely unresponsive. Initial CT head was normal. A subsequent CTA head and venogram demonstrated subacute right left frontal lateral infarct and possible cerebellar infarct. She did not have any focal signs of seizure. Throughout the day she became progressively somnolent then obtunded and had increasing respiratory distress with sustain rates in the 40s. She had a CTA chest to rule out PE. Per my read CT was negative for main, lobar or segmental PE with grossly normal lung parenchyma with bibasilar atelectasis. She has not had an LP. She currently has a pacer/AICD for a prior nonischemic cardiomyopathy. Previous to this admission she had her EF had recovered. Most recent echocardiogram obtained today demonstrated a reduced LVEF approximately 35% with some apical hypokinesis, mildly elevated RVSP but no septal bowing in no RV dyskinesia. History Information - Allergies/Home Medication List Allergies/Adverse Reactions: latex Allergy (Verified 06/13/18 17:47) Rash levofloxacin [From Levaquin] Allergy (Verified 06/13/18 17:47) Vomiting Sulfa (Sulfonamide Antibiotics) Allergy (Verified 06/13/18 17:47) Vomiting ALL ANTIBIOTIC Allergy (Uncoded 05/15/18 11:51) nausea Home Medications: Albuterol [Proventil Inhaler HFA (*)] 1 - 2 puffs IH Q4H PRN 06/13/18 [Last Taken Unknown] Apixaban [Eliquis] 5 mg PO BID 06/13/18 [Last Taken Unknown] Benazepril HCl [Lotensin (*)] 10 mg PO DAILY 06/13/18 [Last Taken Unknown] Budesonide 180 Mcg INH [Pulmicort 180Mcg Flexhaler (*)] 180 mcg IH BID 06/13/18 [Last Taken Unknown] Carvedilol [Coreg (*)] 25 mg PO BIDMEAL 06/13/18 [Last Taken 06/11/18] Loratadine [Claritin] 10 mg PO DAILY 06/13/18 [Last Taken Unknown] Omeprazole 20 mg PO DAILY 06/13/18 [Last Taken 06/11/18] Spironolactone [Aldactone 25 MG (*)] 12.5 mg PO DAILY 06/13/18 [Last Taken Unknown] I have personally reviewed and updated: medical history, social history, surgical history - Past Medical History cancer Additional medical history: HTN, GERD, breast cancer recently diagnosed, bilateral PE in 2014 currently on Eliquis, asthma - Surgical History Additional surgical history: Pacer/ICD placement following persistent LV dysfunction after saddle PE (2014) , breast biopsy, Port placement 04/2018 - Family History Negative for: sudden Additional family history: No family history of DVT or cancers. She has not uncle with history of diabetes otherwise remainder of immediate family member medical history is negative. - Social History Smoking Status: Former smoker Alcohol Use: None Drug Use: None Additional social history: Patient is lives with her . She is employed. Cor status-full. Review of Systems Review of Systems: ROS: 10pt was reviewed & negative except for what was stated in HPI & below Physical Exam Physical Exam: Temp Pulse Resp BP Pulse Ox 37.5 C 128 H 43 H 135/80 H 95 06/19/18 18:09 06/19/18 18:09 06/19/18 18:09 06/19/18 18:09 06/19/18 18:09 O2 (L/minute) 3 Constitutional: obese Eyes: pale conjunctiva, No icteric sclera Ears, Nose, Mouth, Throat: moist mucous membranes (Large tongue. Unable to cooperate for exam.) Cardiovascular: other (Tachycardic, V paced, no murmur.) Respiratory: respiratory distress, other (Tachypnea, moderate respiratory distress, decreased air movement.) Gastrointestinal: soft, non-tender abdomen Skin: warm, normal color Musculoskeletal: other (Normal bulk and tone) Neurologic: other (Attendant, minimally responsive to pain, does not open eyes, spontaneously moving left upper extremity) Lymph, Heme, Immunologic: no cervical LAD Lab Data & Imaging Review 06/19/18 06:00 06/19/18 06:00 WBC 7.08 10^3/uL (3.80-9.50) 06/19/18 06:00 RBC 2.78 10^6/uL (4.18-5.33) L 06/19/18 06:00 Hgb 8.1 g/dL (12.6-16.3) L 06/19/18 06:00 POC Hgb 8.8 gm/dL (12.6-16.3) L 06/18/18 00:15 Hct 25.1 % (38.0-47.0) L 06/19/18 06:00 POC Hct 26 % (38-47) L 06/18/18 00:15 MCV 90.3 fL (81.5-99.8) 06/19/18 06:00 MCH 29.1 pg (27.9-34.1) 06/19/18 06:00 MCHC 32.3 g/dL (32.4-36.7) L 06/19/18 06:00 RDW 13.3 % (11.5-15.2) 06/19/18 06:00 Plt Count 38.0 10^3/uL (150-400) L 06/19/18 06:00 MPV 9.3 fL (8.7-11.7) 06/19/18 06:00 Neut % (Auto) Not Reported 06/19/18 06:00 Lymph % (Auto) Not Reported 06/19/18 06:00 [place] % (Auto) Not Reported 06/19/18 06:00 Eos % (Auto) Not Reported 06/19/18 06:00 Baso % (Auto) Not Reported 06/19/18 06:00 Nucleat RBC Rel Count Not Reported 06/19/18 06:00 Absolute Neuts (auto) Not Reported 06/19/18 06:00 Absolute Lymphs (auto) Not Reported 06/19/18 06:00 Absolute Monos (auto) Not Reported 06/19/18 06:00 Absolute Eos (auto) Not Reported 06/19/18 06:00 Absolute Basos (auto) Not Reported 06/19/18 06:00 Absolute Nucleated RBC Not Reported 06/19/18 06:00 Immature Gran % Not Reported 06/19/18 06:00 Seg Neutrophils % 79.0 % 06/19/18 06:00 Band Neutrophils % 5.0 % 06/19/18 06:00 Lymphocytes % 7.0 % 06/19/18 06:00 Monocytes % 4.0 % 06/19/18 06:00 Eosinophils % 0.0 % 06/19/18 06:00 Basophils % 0.0 % 06/19/18 06:00 Metamyelocytes % 2.0 % 06/19/18 06:00 Myelocytes % 3.0 % 06/19/18 06:00 Promyelocytes % 0.0 % 06/19/18 06:00 Blast Cells % 0.0 % 06/19/18 06:00 Immature Gran # Not Reported 06/19/18 06:00 Absolute Seg Neuts 5.59 10^3/uL (1.70-6.50) 06/19/18 06:00 Absolute Band Neuts 0.35 10^3/uL (0.00-0.70) 06/19/18 06:00 Absolute Lymphocytes 0.50 10^3/uL (1.00-3.00) L 06/19/18 06:00 Absolute Monocytes 0.28 10^3/uL (0.30-0.80) L 06/19/18 06:00 Absolute Eosinophils 0.00 10^3/uL (0.03-0.40) L 06/19/18 06:00 Absolute Basophils 0.00 10^3/uL (0.02-0.10) L 06/19/18 06:00 Absolute Metamyelocyte 0.14 10^3/mL (0.00-0.00) H 06/19/18 06:00 Absolute Myelocytes 0.21 10^3/mL (0.00-0.00) H 06/19/18 06:00 Absolute Promyelocytes 0.00 10^3/uL (0.00-0.00) 06/19/18 06:00 Absolute Plasma Cells 0.00 10^3/uL (0.00-0.00) 06/19/18 06:00 Nucleated RBCs 0 /100 WBC (0-0) 06/19/18 06:00 Absolute Blast Cells 0.00 10^3/uL (0.00-0.00) 06/19/18 06:00 Plasma Cells % 0.0 % 06/19/18 06:00 Toxic Granulation PRESENT H 06/18/18 00:20 Toxic Vacuolation PRESENT H 06/16/18 05:00 Dohle Bodies PRESENT H 06/16/18 05:00 Platelet Estimate DECREASED (ADEQ) L 06/19/18 06:00 Normal RBC Morphology SEE COMMENT (NORMAL) 06/14/18 15:40 Hypochromasia 1+ H 06/18/18 04:12 Microcytic Cells 1+ H 06/19/18 06:00 Tear Drop Cells 1+ H 06/19/18 06:00 Oval Macrocytes 1+ H 06/19/18 06:00 Echinocytes 2+ H 06/16/18 05:00 Elliptocytes 1+ H 06/19/18 06:00 Smear Review By Vaishali HAN MD 06/18/18 04:12 Absolute Retic 0.010 10^6/uL (0.050-0.117) L 06/14/18 17:45 Percent Retic 0.17 % (0.98-2.67) L 06/14/18 17:45 PT 15.7 SEC (12.0-15.0) H 06/18/18 04:12 INR 1.23 (0.83-1.16) H 06/18/18 04:12 APTT 23.5 SEC (23.0-38.0) 06/18/18 04:12 Fibrinogen 536 mg/dL (214-456) H 06/14/18 15:40 D-Dimer 1.96 ug/mLFEU (0.00-0.50) H 06/14/18 15:40 Coag Pathologist Com Amber GARRISON MD 06/14/18 15:40 Puncture Site VENOUS 06/19/18 16:05 Patient Temperature 37.5 DEGREES 06/19/18 18:10 pCO2 26 mmHg (34-38) L 06/18/18 00:15 pO2 128 mmHg (65-75) H 06/18/18 00:15 Total CO2 18 mEq/L (23-27) L 06/18/18 00:15 ABG pH 7.43 (7.35-7.45) 06/18/18 00:15 ABG HCO3 17 mEq/L (22-26) L 06/18/18 00:15 ABG O2 Saturation 99 % (92-95) H 06/18/18 00:15 ABG Base Excess -6.1 mEq/L (-2.5-2.5) L 06/18/18 00:15 ABG Lactic Acid 1.2 mmol/L (0.5-1.6) 06/18/18 00:15 VBG pH 7.41 (7.31-7.42) 06/19/18 18:10 VBG HCO3 19 mEQ/L (22-26) L 06/19/18 18:10 VBG Total CO2 20 mEq/L (21-27) L 06/19/18 18:10 VBG O2 Saturation 60 % (65-75) L 06/19/18 18:10 VBG Base Excess -4.7 mEq/L (-2.5-2.5) L 06/19/18 18:10 VBG Lactic Acid 1.7 mmol/L (0.7-2.1) 06/13/18 18:11 Mixed VBG pCO2 31 mmHg (40-44) L 06/19/18 18:10 Mixed VBG pO2 33 mmHG (35-40) L 06/19/18 18:10 Total O2 Concentration 2.0 LITERS 06/18/18 00:15 POC Sodium 143 mEq/L (135-145) 06/18/18 00:15 Sodium 139 mEq/L (135-145) 06/19/18 06:00 POC Potassium 4.7 mEq/L (3.3-5.0) 06/18/18 00:15 Potassium 4.4 mEq/L (3.3-5.0) 06/19/18 06:00 POC Chloride 117 mEq/L (97-110) H 06/18/18 00:15 Chloride 114 mEq/L (97-110) H 06/19/18 06:00 Carbon Dioxide 21 mEq/l (22-31) L 06/19/18 06:00 Anion Gap 4 mEq/L (6-14) L 06/19/18 06:00 POC BUN 26 mg/dL (7-23) H 06/18/18 00:15 BUN 24 mg/dL (7-23) H 06/19/18 06:00 Creatinine 0.8 mg/dL (0.6-1.0) 06/19/18 06:00 POC Creatinine 0.9 mg/dL (0.6-1.0) 06/18/18 00:15 Estimated GFR > 60 06/19/18 06:00 Glucose 97 mg/dL (70-100) 06/19/18 06:00 POC Glucose 139 mg/dL (70-100) H 06/18/18 00:15 Calcium 8.4 mg/dL (8.5-10.4) L 06/19/18 06:00 Total Bilirubin 1.1 mg/dL (0.1-1.4) 06/18/18 04:12 Conjugated Bilirubin 0.7 mg/dL (0.0-0.5) H 06/18/18 04:12 Unconjugated Bilirubin 0.4 mg/dL (0.0-1.1) 06/18/18 04:12 AST 54 IU/L (14-46) H 06/18/18 04:12 ALT 80 IU/L (9-52) H 06/18/18 04:12 Alkaline Phosphatase 55 IU/L (38-126) 06/18/18 04:12 Lactate Dehydrogenase 536 IU/L (313-618) 06/14/18 15:40 Troponin I 1.570 ng/mL (0.000-0.034) H 06/19/18 16:05 NT-Pro-B Natriuret Pep 61637 pg/mL (0-125) H 06/19/18 16:05 Total Protein 4.7 g/dL (6.3-8.2) L 06/18/18 04:12 Total Protein (PEP) 4.9 g/dL (6.3-8.2) L 06/14/18 Unknown Albumin 2.5 g/dL (3.5-5.0) L 06/18/18 04:12 Albumin (PEP) 2.8 g/dL (3.4-4.7) L 06/14/18 Unknown Albumin/Globulin Ratio 1.33 06/14/18 Unknown Wtcim-5-Dkmltixyk 0.4 g/dL (0.1-0.3) H 06/14/18 Unknown Orzmu-4-Lzzqiiapn 0.6 g/dL (0.6-1.0) 06/14/18 Unknown Beta Globulins 0.6 g/dL (0.7-1.2) L 06/14/18 Unknown Gamma Globulins 0.4 g/dL (0.6-1.6) L 06/14/18 Unknown M-Jose Raul NOT DETECTED g/dL 06/14/18 Unknown PEP Impression Vaishali Han MD 06/14/18 Unknown Procalcitonin 0.09 ng/mL (0.02-0.10) 06/18/18 04:13 Urine Color YELLOW 06/18/18 01:50 Urine Appearance CLEAR 06/18/18 01:50 Urine pH 5.0 (5.0-7.5) 06/18/18 01:50 Ur Specific [place] 1.021 (1.002-1.030) 06/18/18 01:50 Urine Protein 1+ (NEGATIVE) H 06/18/18 01:50 Urine Ketones NEGATIVE (NEGATIVE) 06/18/18 01:50 Urine Blood 2+ (NEGATIVE) H 06/18/18 01:50 Urine Nitrate NEGATIVE (NEGATIVE) 06/18/18 01:50 Urine Bilirubin NEGATIVE (NEGATIVE) 06/18/18 01:50 Urine Urobilinogen NEGATIVE EU (0.2-1.0) 06/18/18 01:50 Ur Leukocyte Esterase NEGATIVE (NEGATIVE) 06/18/18 01:50 Urine RBC 15-25 /hpf (0-3) H 06/18/18 01:50 Urine WBC 5-10 /hpf (0-3) H 06/18/18 01:50 Ur Epithelial Cells TRACE /lpf (NONE-1+) 06/18/18 01:50 Urine Bacteria 4+ /hpf (NONE SEEN) H 06/13/18 18:19 Hyaline Casts 1-5 /lpf (0-1) 06/18/18 01:50 Urine Mucus 2+ /lpf (NONE-1+) H 06/18/18 01:50 Urine Glucose NEGATIVE (NEGATIVE) 06/18/18 01:50 Rheum Factor Semi-Quant < 8.6 IU/L (<12.0) 06/14/18 15:40 MARY Titer 1:160 (<1:40) 06/14/18 15:40 MARY Pattern SPECKLED 06/14/18 15:40 MARY Reviewed By LARISA HAN MD 06/14/18 15:40 Beta-2-GPI IgG Ab <9.4 U/mL 06/14/18 15:40 Beta-2-GPI IgM Ab <9.4 U/mL 06/14/18 15:40 Anti-Cardiolipin IgG Ab <9.4 GPL 06/14/18 15:40 Anti-Cardiolipin IgM Ab <9.4 MPL 06/14/18 15:40 Hep Bs Antigen NEGATIVE (NEGATIVE) 06/14/18 15:40 Hep Bs Antibody Negative 06/14/18 15:40 Hep Bs Antibody, Quant <5.0 mIU/mL 06/14/18 15:40 Hep B Core Total Ab NEGATIVE (NEGATIVE) 06/14/18 15:40 Hepatitis C Antibody NEGATIVE (NEGATIVE) 06/14/18 15:40 HIV (1&2) Ag & Ab Refer NEGATIVE (Negative) 06/14/18 15:40 Group A Strep Screen NEGATIVE (NEGATIVE) 06/13/18 18:04 Group A Strep DNA NEGATIVE (NEGATIVE) 06/13/18 Unknown Patient ABO/Rh O POSITIVE 06/18/18 01:00 Antibody Screen NEGATIVE 06/18/18 01:00 Platelet Orders Status READY 06/18/18 01:00 Visualized and Interpreted imaging results: Yes Interpretation: I reviewed and interpreted the radiographic images. CTA chest 06/19/2018 without main, lobar or segmental PE. Low lung volumes with some atelectasis but no infiltrate or mass. CT head with subacute left anterior lateral frontal stroke and possible cerebellar stroke EKG additional interpertation: V pace, widened QRS. T-wave inversions in inferior leads Assessment & Plan Assessment: ASSESSMENT # acute respiratory failure requiring intubation intubated for airway protection and tachypnea. CT PE negative for PE and without infiltrate. Patient was obtunded with respiratory rate in the 40s # Acute encephalopathy Etiology not completely elucidated. Patient with subacute versus acute left frontal temporal stroke. No clear signs for meningitis. Encephalitis is possible given initial mild infectious symptoms on presentation however these may also have been side effects of chemotherapy. A paraneoplastic process causing encephalitis is possible # acute respiratory failure requiring intubation # CVA Thrombus in L M3 with corresponding hypodensity. # NSTEMI T-wave inversions and troponin leak may be due to CVA but coronary artery thrombus is also possible. # thrombocytopenia Chemo related versus ITP versus hypercoagulable state. Very low suspicion for JULIANNE given lack of heparin administration and clinical course # venous and arterial thrombi May be malignant related versus underlying autoimmune conditions such as APS. JULIANNE unlikely as per above # breast cancer Management per Oncology # UTI Treated PLAN # intubated 06/19/18 for acute respiratory failure and airway protection, continue lung protective ventilation, minimize sedation # after discussions with hospitalist as well as opinions from lace winder and brush cleaner, will initiate low intensity heparin infusion no bolus for NSTEMI and possible ACS in light of her history of multiple venous and arterial thrombotic events. # for hypercoagulable workup to Hematology query whether sending for lupus anticoagulant and anticardiolipin antibodies may be reasonable # hold aspirin given possible need for LP # initiate trickle feeds # pending workup and clinical course, may need to transfuse platelets and perform LP # Feeding - NPO # Analgesia prn fentanyl # Sedation propofol # Thromboprophylaxis - hep gtt # Head of bed elevated # Ulcer prophylaxis - H2 gin # Glucose SSI # Skin no skin breakdown # Delirium - delirium precautions Patient is critical ill due to life threatening organ dysfunction and is at high risk for decompensation and . Total critical care time, excluding procedures: 125 min. This time was spent spent direct side at bedside care patient, family meetings, reviewing chart, discussing care with other specialists. EVENTS 06/19/18 intubation CX Data 06/18 BCx NGTD 06/13/18 UCx klebsiella Plan: .
[2018-06-19] MEDS ORDERED: HEPARIN 10,000 UNIT/10 ML MDV (1,000 UNIT/ML) IVP PRN (19:16)
[2018-06-19] MEDS ORDERED: HEPARIN/DEXTROSE 500 ML IV SCH (19:30)
--- NOTE | 2018-06-19 19:44 | SUROPNOTE ---
[facility] Operative Report - Surgery Emergency Endotracheal Intubation Date and Time 06/19/18 190 Operators S Jay Paula MD Indication Respiratory failure Consent Verbal consent was obtained via patient/next of kin Preoxygenation NRB Medications Versed 2 mg ketamine 100 mg Rocuronium 100 mg Equipment Mac 3 7.5 ETT [place] key grade view intubation 1 Number of Attempts 1 Post Procedure Placement was confirmed with capnography, breath sounds were ausculated bilaterally. ETT zuniga, 21 cm at teeth. OGT placed. CXR ordered Complications None
[2018-06-19] MEDS ORDERED: MIDAZOLAM 2 MG/2 ML VIAL IVP ONE (19:45)
[2018-06-19] MEDS ORDERED: KETAMINE 200 MG/20 ML VIAL IVP ONE (19:45)
[2018-06-19] MEDS ORDERED: ROCURONIUM 100 MG/10 ML VIAL IVP ONE (19:45)
[2018-06-19 20:00] LABS: INR 1.23 (0.83-1.16); PROTIME(PATIENT) 15.7 SEC (12.0-15.0)
[2018-06-19 20:42] LABS: PLATELET COUNT 34 10^3/uL (150-400)
[2018-06-19] MEDS ORDERED: ROCURONIUM 100 MG/10 ML VIAL ONE (23:03)
[2018-06-19] MEDS ORDERED: MIDAZOLAM 2 MG/2 ML VIAL ONE (23:03)
[2018-06-20] MEDS: PROPOFOL/EMULSION 100 ML IV SCH ×2 (02:48→10:47)
[2018-06-20 04:29] LABS: INR 1.18 (0.83-1.16); PROTIME(PATIENT) 15.2 SEC (12.0-15.0)
[2018-06-20 04:41] LABS: PLATELET COUNT 77 10^3/uL (150-400)
[2018-06-20] MEDS: NYSTATIN SUSP 500000 UNIT/5 ML UD LIQ PO SCH ×3 (06:45→16:43)
[2018-06-20] MEDS ORDERED: ATORVASTATIN CALCIUM 40 MG TAB PO SCH (09:00)
[2018-06-20] MEDS: SPIRONOLACTONE 25 MG TAB PO SCH (09:05)
[2018-06-20] MEDS: CARVEDILOL 25 MG TAB PO SCH (09:05)
[2018-06-20] MEDS: BENAZEPRIL HCL 10 MG TAB PO SCH (09:06)
[2018-06-20] MEDS: Loratadine [Claritin] 10 MG PO SCH (09:06)
--- NOTE | 2018-06-20 09:52 | HOSPPROG ---
Hospitalist Progress Note Assessment/Plan: ASSESSMENT #Acute CVA - CT head 06/19 noting large subacute infarct in left frontal lobe which is likely the etiology of her encephalopathy. - CTA head/neck negative yesterday. - PT/OT/DISTANCE LEARNING ADMINISTRATOR, lipids, A1c ordered. - Neurology consulted who recommend BP control, LDL goal < 70 (74, Atorvastatin 40 mg started), H1AC goal < 7.0, PT/OT/Speech consults to determine rehab needs , they recommend AC with [facility]ion for stroke prevention, will defer to hematology - F/U neurology clinic 1-5 weeks after hospital discharge # acute respiratory failure requiring intubation intubated for airway protection and tachypnea. CT PE negative for PE and without infiltrate. Patient was obtunded with respiratory rate in the 40s yesterday # Acute encephalopathy - Patient with subacute versus acute left frontal temporal stroke. - No clear signs for meningitis. Encephalitis is possible given initial mild infectious symptoms on presentation however these may also have been side effects of chemotherapy. - A paraneoplastic process causing encephalitis is possible, considering LP # acute respiratory failure requiring intubation # NSTEMI T-wave inversions and troponin leak may be due to CVA but coronary artery thrombus is also possible. # thrombocytopenia Chemo related versus ITP versus hypercoagulable state. Very low suspicion for HIT given lack of heparin administration and clinical course # venous and arterial thrombi May be malignant related versus underlying autoimmune conditions such as APS. JULIANNE unlikely as per above # breast cancer Management per Oncology # UTI Treated PLAN # intubated 06/19/18 for acute respiratory failure and airway protection, continue lung protective ventilation, minimize sedation # Was initiated on low intensity heparin infusion no bolus for NSTEMI and possible ACS in light of her history of multiple venous and arterial thrombotic events. Discussed with Cardiology this morning and will d/c heparin given downtrending Trops and CVA # Hematology to give IVIG today # For hypercoagulable workup to Hematology query whether sending for lupus anticoagulant and anticardiolipin antibodies may be reasonable # initiate trickle feeds # Feeding - NPO # Analgesia prn fentanyl # Sedation propofol # Thromboprophylaxis - hep gtt # Head of bed elevated # Ulcer prophylaxis - H2 gin # Glucose SSI # Skin no skin breakdown # Delirium - delirium precautions Patient is critical ill due to life threatening organ dysfunction and is at high risk for decompensation and . Total critical care time, excluding procedures: 45 min. This time was spent spent direct side at bedside care patient, family meetings, reviewing chart, discussing care with other specialists. Subjective: Patient intubated this morning Objective: Vital Signs Temp Pulse Resp BP Pulse Ox 37.3 C 113 H 23 H 109/56 L 100 06/19/18 20:00 06/20/18 08:10 06/20/18 08:10 06/20/18 06:00 06/20/18 08:10 Laboratory Results 06/20/18 04:00 06/20/18 04:00 06/19/18 06/20/18 06/21/18 05:59 05:59 05:59 Intake Total 1100 1747 Output Total 1150 Balance 1100 597 PT 15.2 SEC (12.0-15.0) H 06/20/18 04:00 INR 1.18 (0.83-1.16) H 06/20/18 04:00 - Physical Exam Constitutional: no apparent distress Eyes: anicteric sclera Ears, Nose, Mouth, Throat: other (Endotracheal tube in place) Cardiovascular: regular rate and rhythym Respiratory: other (Mechanical breath souds) Gastrointestinal: soft, non-tender abdomen Genitourinary: rubin in urethra Skin: normal color Neurologic: No AAOx3 Psychiatric: No interacting appropriately ICD10 Worksheet Patient Problems: Problems Problem Status Onset Acute renal insufficiency Acute Generalized weakness Acute Hyponatremia Acute Patient on antineoplastic chemotherapy regimen Acute Thrombocytopenia due to drugs Acute UTI (urinary tract infection), bacterial Acute Cardiomyopathy Acute Fatigue Acute Thrombocytopenia Acute
--- NOTE | 2018-06-20 09:55 | NEUROPROG ---
Assessment: [id number] - Neurology Consult: - CC: F/U for somnolence - Narrative Summary: Pt undergoing chemotherapy for BRCA was admitted to [facility] on 06/13/18 for weakness , diarrhea, and malaise. She had stopped her Eliquis 2 days prior to admission due to bleeding (she was on this medication for prior PE in 2014). She was noted to have pancytopenia felt secondary to chemotherapy. She was also noted to have acute renal injury and hyponatremia likely from GI losses and poor PO intake. Oncology saw the patient and felt she had ITP to explain her low blood count as well as BRCA. Pt also felt to have a UTI which was treated. 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 Head CT was normal. I initially saw her on 06/18/18. Her neurologic exam was nonfocal. The patient was lying in bed with her eyes closed. She briskly withdraws from pain and forcefully closes her eyes when I attempt to open them. I suspect she is giving poor effort to explain her decreased responsiveness. Given her multiple medical conditions she may have toxic metabolic encephalopathy. STAT head/neck CTA were unremarkable. Cannot get a brain MRI due to pacemaker. I will get an EEG to ensure no seizures and give a trial of Keppra 500 mg bid. - F/U 06/19/18. EEG showed some mild generalized slowing but no seizure activity so Keppra stopped. Pt not changed this morning. Still does not respond to verbal commands. She will briskly withdraw all 4 extrem to pain and with sternal rub she opened her eyes and attempted to use her left hand to push my hand away suggesting encephalopathy. I suspect she likely has toxic-metabolic encephalopathy. Small stroke or venous thrombosis is possible but seems unlikely. I will evaluate for any evolving stroke with head CT and any venous thrombosis with CT venogram head. I discussed case with hospitalist and oncologist. We considered a spinal tap but she does not clinically appear to have meningitis and a spinal tap would have bleeding risk given low platelets so we will hold off on that for now and watch her for another day. I discussed all this with her and he agrees with the plan. - HPI: F/U 06/20/18. Head CT performed on 06/19/18 showed subacute left frontal stroke so this is likely the cause of her encephalopathy. CTV head showed no venous clot. TTE performed showed reduced EF so the patient may also have had a heart attack. Pt will require PT/OT/Speech consults to determine rehab needs. Stroke is likely from hypercoagulable state from cancer, ITP, or possibly from cardiac thrombus from possible heart attack. Treatment is restarting the anticoagulation with Eliquis when safe to do so from hematology standpoint. Pt should be placed on aspirin 81 mg qd prior to that if OK from hematology standpoint. No further neurologic w/u needed. Neurology will sign off. Pt has also had signs of respiratory failure so she was intubated and placed in the ICU. 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 Left Frontal Stroke: Head CT performed on 06/19/18 showed subacute left frontal stroke so this is likely the cause of her encephalopathy. CTV head showed no venous clot but CTA showed a left M3 thrombus as the likely cause of the stroke (pt >24 hours since stroke onset so not eligible for any intra- arterial catheter therapy). TTE performed showed reduced EF so the patient may also have had a heart attack. Pt will require PT/OT/Speech consults to determine rehab needs. Stroke is likely from hypercoagulable state from cancer , ITP, or possibly from cardiac thrombus from possible heart attack. Treatment is addressing these underlying conditions and restarting the anticoagulation with Eliquis when safe to do so from hematology standpoint. Pt should be placed on aspirin 81 mg qd prior to that if OK from hematology standpoint. No further neurologic w/u needed. Neurology will sign off. - 2. BRCA on chemotherapy 3. ITP with low platelet 4. UTI 5. Hx of PE but cannot use Eliquis due to low platelet 6. Pacemaker so cannot have MRI 7. Possible myocardial infarction - Plan: - Blood pressure goal < 220/120 x 24 hours than < 140/90 - LDL goal < 70 (74, recommend statin) - H1AC goal < 7.0 - PT/OT/Speech consults to determine rehab needs - for stroke prevention I recommend restarting the anticoagulation with Eliquis when safe to do so from hematology standpoint. Pt should be placed on aspirin 81 mg qd prior to that if OK from hematology standpoint. - F/U neurology clinic 1-5 weeks after hospital discharge - No further neurologic w/u needed, neurology will sign off Objective: Vital Signs Temp Pulse Resp BP Pulse Ox 37.6 C 113 H 23 H 106/32 L 100 06/20/18 08:00 06/20/18 08:10 06/20/18 08:10 06/20/18 08:00 06/20/18 08:10 Laboratory Results 06/20/18 04:00 06/20/18 04:00 06/19/18 06/20/18 06/21/18 05:59 05:59 05:59 Intake Total 1100 1747 Output Total 1150 Balance 1100 597 PT 15.2 SEC (12.0-15.0) H 06/20/18 04:00 INR 1.18 (0.83-1.16) H 06/20/18 04:00 Allergies/Adverse Reactions: latex Allergy (Verified 06/13/18 17:47) Rash levofloxacin [From Levaquin] Allergy (Verified 06/13/18 17:47) Vomiting Sulfa (Sulfonamide Antibiotics) Allergy (Verified 06/13/18 17:47) Vomiting ALL ANTIBIOTIC Allergy (Uncoded 05/15/18 11:51) nausea
[2018-06-20] MEDS ORDERED: FAMOTIDINE 20 MG TAB PO SCH (10:00)
[2018-06-20] MEDS ORDERED: FUROSEMIDE 20 MG/2 ML VIAL IVP SCH (10:15)
[2018-06-20] MEDS ORDERED: ACETAMINOPHEN 325 MG TAB TUBE PRN (11:30)
[2018-06-20] MEDS ORDERED: IMMUN GLOB G(IGG)/GLY/IGA OV50 GAMMAGARD 30 GM/300 ML VIAL IV ONE (12:00)
[2018-06-20] MEDS: FAMOTIDINE 20 MG TAB TUBE SCH (12:04)
[2018-06-20] MEDS ORDERED: ACETAMINOPHEN 650 MG/20.3 ML UDCUP TUBE ONE (12:15)
--- NOTE | 2018-06-20 12:18 | SOAPPROG ---
SOAP Progress Note Assessment/Plan: Assessment: Assessment: 1) Locally advanced Right breast cancer (stage IIB) s/o C1 TCHP 06/05/18 2) Thrombocytopenia (ITP and recent chemotherapy), decent response to plt txn 3) Chemo induced diarrhea, better 4) Chemo induced mucocytis 5) h/o PE 2014, LE DVT apr 2018, no evidence of current dvt on recent u/s 6) Altered MS , ct scan c/w subacute infarct 7) respiratory failure, requiring intubation Plan:ICU support for now although overall prognosis very guarded, will give IVIG , if plts rise could consider asa. Will check DRVVT although anticardiolipin antibodies neg, also checking [id number], also check for HIT 06/17/18 11:06 06/18/18 10:13 06/19/18 10:23 06/20/18 11:56 Subjective: intubated unresponsive Objective: Vital Signs Temp Pulse Resp BP Pulse Ox 99.9 F 104 H 19 117/54 L 100 06/20/18 11:38 06/20/18 11:46 06/20/18 11:46 06/20/18 11:38 06/20/18 11:46 Microbiology 06/18/18 02:04 Urine Culture - Final Urine,Catheterized Laboratory Results 06/20/18 04:00 06/20/18 04:00 06/19/18 06/20/18 06/21/18 05:59 05:59 05:59 Intake Total 1100 1747 Output Total 1150 Balance 1100 597 PT 15.2 SEC (12.0-15.0) H 06/20/18 04:00 INR 1.18 (0.83-1.16) H 06/20/18 04:00 ICD10 Worksheet Patient Problems: Problems Problem Status Onset Acute renal insufficiency Acute Generalized weakness Acute Hyponatremia Acute Patient on antineoplastic chemotherapy regimen Acute Thrombocytopenia due to drugs Acute UTI (urinary tract infection), bacterial Acute Cardiomyopathy Acute Fatigue Acute Thrombocytopenia Acute
--- NOTE | 2018-06-20 12:20 | PDINTPN ---
[employer] Progress Note Assessment/Plan: ASSESSMENT 67-year-old female with stage IIb breast cancer, transferred to the ICU after acute CVA leading to obtain day henley and respiratory failure in the setting of thrombocytopenia and hypercoagulability # acute respiratory failure requiring intubation intubated for airway protection and tachypnea. CT PE negative for PE and without infiltrate. # Acute encephalopathy Acute CVA plus metabolic encephalopathy. Paraneoplastic process and infeciton less likley. # acute respiratory failure requiring intubation # CVA Thrombus in L M3 with corresponding hypodensity. # Type 2NSTEMI Due to above troponins peaked at 1.5. # Stress Cardiomyopathy # ITP Thrombocytopenia preceded chemotherapy. Platelets increased after administering steroids and Rituxan. TTP, residual chemo effect less likely # venous and arterial thrombi May be malignant related versus underlying autoimmune conditions such as APS. JULIANNE unlikely as per above # breast cancer Her2 positive, stage IIB. # UTI Treated PLAN # lung protective ventilation, wean sedation for mental status exam and assess ability to extubate # start diuresis with lasix 20 IV bid # IVIG for thrombocytopenia # will check lupus anticoagulant and platelet factor 4 antibodies # it platelet count remains at current level or greater tomorrow will start aspirin and possibly heparin drip # will defer LP for now # Feeding - tube feeds # Analgesia prn fentanyl # Sedation propofol # Thromboprophylaxis - SCDs, and SQHep # Head of bed elevated # Ulcer prophylaxis - H2 gin # Glucose SSI # Skin no skin breakdown Patient is critical ill due to life threatening organ dysfunction and is at high risk for decompensation and . Total critical care time, excluding procedures: 95 min which was spent reviewing patient's record, evaluating and re-examining patient, discussions with family, multidisciplinary rounds, discussions with neurologist and nutrition specialist EVENTS 06/15/18 intubation 06/20/18 IVIG Subjective: Transferred to the ICU last night for increasing respiratory failure progressive obtundation. Intubated for respiratory failure and airway protection, initially starting heparin drip for concerns for ACS. Imaging yesterday without PE or new AIRCRAFT NAVIGATOR lesion Objective: Vital Signs Temp Pulse Resp BP Pulse Ox 37.7 C 104 H 19 117/54 L 100 06/20/18 11:38 06/20/18 11:46 06/20/18 11:46 06/20/18 11:38 06/20/18 11:46 Microbiology 06/18/18 02:04 Urine Culture - Final Urine,Catheterized Laboratory Results 06/20/18 04:00 06/20/18 04:00 06/19/18 06/20/18 06/21/18 05:59 05:59 05:59 Intake Total 1100 1747 Output Total 1150 Balance 1100 597 PT 15.2 SEC (12.0-15.0) H 06/20/18 04:00 INR 1.18 (0.83-1.16) H 06/20/18 04:00 I personally reviewed reviewed patient's laboratory data as well as radiographic images. CT PE from 06/19/2018 without evidence venous thromboembolism, grossly clear lung parenchyma with mild interstitial edema and bibasilar atelectasis Physical Exam - Physical Exam General Appearance: obtunded EENT: PERRL/EOMI, ET tube Neck: supple, No lymphadenopathy (R), No lymphadenopathy (L) Respiratory: chest non-tender, lungs clear, normal breath sounds Cardiac/Chest: edema, JVD (Unable to assess), No gallop Abdomen: non-tender, soft Pelvic Exam: deferred Skin: normal color, warm/dry Extremities: normal range of motion, non-tender, normal capillary refill Neuro/Psych: other (Intubated sedated, no focal deficits) ICD10 Worksheet Patient Problems: Problems Problem Status Onset Acute renal insufficiency Acute Generalized weakness Acute Hyponatremia Acute Patient on antineoplastic chemotherapy regimen Acute Thrombocytopenia due to drugs Acute UTI (urinary tract infection), bacterial Acute Cardiomyopathy Acute Fatigue Acute Thrombocytopenia Acute
--- NOTE | 2018-06-20 12:57 | PDCARPN ---
Cardiology Progress Note Chief Complaint: Patient was intubated overnight given increased work of breathing as well as air way protection Assessment/Plan: Assessment: Patient is a 67 y/o female, known to me in the outpatient setting, with history of PE (previously on Eliquis), non ischaemic CMP s/p ICD with normalization of LVEF noted, HTN, long standing LBBB pattern on ECG, NYHA class II CHF (in outpatient setting), and recent diagnosis of breast cancer (right side, stage IIB), with admission on 06-13-18 for weakness, malaise, and diarrhea - symptoms noted after her first round of chemotherapy. Last night, the patient decompensated from a respiratory standpoint, requiring intubation for airway management. Concerns about PE given her history led to CT to rule out pulmonary embolism (negative study). Two days prior the patient was noted to unresponsive and diagnosis of acute CVA to the left frontal lobe, described as "large" was appreciated. Today, the patient is sedated and intubated. Mild troponin elevation was noted (peak to 1.57), without ST/T wave changes appreciated (LBBB pattern). Discussions last night with critical care/hospitalist team about the addition of heparin (without bolus) and without ASA given concerns about bleeding risk. Patient's platelets last night were noted to be about 14,000. Platelet transfusions (3) were performed, and elevation in platelet counts were noted today. Neurology saw the patient in consultation today, and recommended ASA and Eliquis, but also recommended clearance with heme/onc prior to resumption of this therapy. Cardiology with recommendations for supportive measures (no invasive left heart catheterization given concerns about bleeding with thrombocytopenia). Plan: (1) From a cardiovascular standpoint, would continue therapy on heparin given acute need for anticoagulation in the setting of NSTEMI (2) Intubation continues for respiratory support - maintain sedation for comfort (3) Agree with plans to reintroduce both ASA (given the NSTEMI noted) and Eliquis (with pulmonary emboli history as well as new CVA). Cardiology with concerns about the etiology of the NSTEMI, and if secondary thrombus led to the cardiac events noted (4) Supportive measures with respect to the NSTEMI are recommended rather than invasive left heart catheterization - especially in setting of thrombocytopenia and recent CVA) (5) Statins should be resumed given the non ischaemic CMP, the newly noted reduction in systolic function, and LDL >70 mg/dL (6) Prognosis is poor with multisystem involvement that has been noted Cardiology will continue to follow this patient Subjective: Intubated and sedated Reviewed/Discussed With: family, hospitalist, multidisciplinary team Objective: Vital Signs (8 Hrs) Temp Pulse Resp BP Pulse Ox 06/20/18 11:46 104 H 19 100 06/20/18 11:38 37.7 C 104 H 19 117/54 L 100 06/20/18 08:10 113 H 23 H 100 06/20/18 08:00 37.6 C 112 H 20 106/32 L 100 06/20/18 06:00 106 H 17 109/56 L 100 Intake/Output (24 Hrs) 06/19/18 06/20/18 06/21/18 05:59 05:59 05:59 Intake Total 1100 1747 Output Total 1150 Balance 1100 597 Intake: IV Infused (ml) 1100 1647 Heparin/Dextrose 500 ml @ 45 Per Protocol IV CONT FAUZIA Rx#:[id number] Ns 1,000 ml @ 100 mls/hr 1100 1485 IV CONT FAUZIA Rx#: [id number] Propofol/Emulsion 100 ml 117 @ Per Protocol IV CONT FAUZIA Rx#:[id number] Tube Feeding (ml) 50 Tube Flush (ml) 50 Output: Urine (ml) 1150 Catheter 1150 Other: Weight 105.6 kg Number of Voids Incontinence 1 Toilet 1 Number of Stools Incontinence 1 Result Diagrams: 06/20/18 13:38 06/20/18 04:00 Cardiac Labs: Cardiac Lab Results (72 Hrs) 06/20/18 06/20/18 06/19/18 04:00 04:00 19:39 Troponin I Cancelled 1.300 H 1.470 H 06/19/18 16:05 Troponin I 1.570 H Telemetry: ventricular paced rhythm Echocardiogram: LVEF 35-40% - Physical Exam Constitutional: other (intubated and sedated) Eyes: PERRL Ears, Nose, Mouth, Throat: moist mucous membranes Cardiovascular: regular rate and rhythm, systolic murmur, pulses symmetric bilat , No jugular vein distention Peripheral Pulses: 2+: dorsalis-pedis (R), dorsalis-pedis (L) Respiratory: other (course breath sounds) Skin: other (edema) Psychiatric: other (sedated and intubated) ICD10 Worksheet Patient Problems: Problems Problem Status Onset Acute renal insufficiency Acute Generalized weakness Acute Hyponatremia Acute Patient on antineoplastic chemotherapy regimen Acute Thrombocytopenia due to drugs Acute UTI (urinary tract infection), bacterial Acute Cardiomyopathy Acute Fatigue Acute Thrombocytopenia Acute
[2018-06-20] MEDS ORDERED: IMMUNE GLOBULIN 20 GM/200 ML VIAL IV ONE (13:00)
--- NOTE | 2018-06-20 15:58 | ASMTCMCOM ---
CM Note CM Note Notes: A family meeting was held today ( please see Cherelle Goins's notes). In attendance were patient's , Bhupinder, cousin, Tamika, and granddaughter, Cass. Staff present were Annette, Nurse Inspector Bicycle, Chaplain Cherelle and ROMEO Pedersen. Patient's described patient as someone who struggled with medical interventions as evidenced by her ignoring her tumor for 2 years and only seeking treatment when the tumor broke through the skin and was bleeding. Cass pointed out patient had always struggled with depression even before the medical problems began. Patient's mother was a [employer] and though patient doesn't ascribe to their belief system, she has been influenced by it. We did discuss the liklihood of need for rehab due to patient becoming debilitated by the multiple conditions she is dealing with ( pacemaker, stroke, cancer, blood clots, etc.). Assured patient's Bhupinder we would help make the arrangements and would discuss the plan with him when she is closer to being ready for the next level of care. Patient currently is not doing well and her prognosis is poor/guarded. Annette let the family know she would remain in the ICU for a minimum of another week. We discussed the need for a proxy and the family members in the room felt Bhupinder needs to be proxy. This paperwork is in the front of the chart. Patient's son may or may not agree, however, patient has not been close to him for the past several years and he lives in [place]. The family was informed they can request another family meeting whenever they need one. D/C plan is TBD. ROMEO will continue to follow. Date Signed: 06/20/2018 03:57 PM Electronically Signed By:Nuvia Mayes LCSW
[2018-06-21] MEDS: NYSTATIN SUSP 500000 UNIT/5 ML UD LIQ PO SCH ×5 (00:02→21:03)
[2018-06-21] MEDS: FAMOTIDINE 20 MG TAB TUBE SCH ×3 (00:02→21:02)
[2018-06-21 05:39] LABS: PLATELET COUNT 64 10^3/uL (150-400)
[2018-06-21] MEDS ORDERED: PROTOCOL POTASSIUM 1 DOSE MISC PRN (08:27)
[2018-06-21] MEDS ORDERED: PROTOCOL MAGNESIUM 1 DOSE IV PRN (08:27)
[2018-06-21] MEDS ORDERED: FUROSEMIDE 20 MG/2 ML VIAL IVP SCH ×2 (09:00→10:41)
--- NOTE | 2018-06-21 09:03 | WOCRNPDOC ---
WOCRN Advanced Assessment Note - Skin Integrity Problem, Advanced Assess Right Breast Dressing Type: Interdry Dressing Description: Clean/Dry, Intact Skin Integrity Problem Comment: Assessed patient with Barbi PURCELL. Patient has Moisture Associated Skin Damage under both breasts, in groin folds, and buttocks. Interdry sheets and calazime already in place. Consider fecal managment system if fecal incontinence continues. Wound care will sign off. Please reconsult PRN.
[2018-06-21] MEDS: ATORVASTATIN CALCIUM 40 MG TAB TUBE SCH (09:34)
[2018-06-21] MEDS: Loratadine [Claritin] 10 MG TUBE SCH (09:43)
[2018-06-21] MEDS ORDERED: MAGNESIUM SULF 2 GM/WATER 50 ML IV ONE (10:34)
--- NOTE | 2018-06-21 10:48 | SOAPPROG ---
SOAP Progress Note Assessment/Plan: Assessment: Assessment: 1) Locally advanced Right breast cancer (stage IIB) s/o C1 TCHP 06/05/18 2) Thrombocytopenia (ITP and recent chemotherapy), has been responding to plt txn, received ivig yesterday which she tolerated well 3) Chemo induced diarrhea, better 4) Chemo induced mucocytis 5) h/o PE 2014, LE DVT apr 2018, no evidence of current dvt on recent u/s 6) Altered MS , ct scan c/w subacute infarct, may be a bit more responsive per 7) respiratory failure, requiring intubation,better, breathing on her own Plan:ICU support for now although overall prognosis very guarded, Will check DRVVT although anticardiolipin antibodies neg, also checking [id number], also check for HIT, retic count is low which is not c/w a hemolytic process. PLT's sl lower today, would hold off on anticoagulation for now Subjective: intubated Objective: Vital Signs Temp Pulse Resp BP Pulse Ox 99.0 F 105 H 34 H 124/61 H 100 06/20/18 20:00 06/21/18 09:00 06/21/18 09:00 06/21/18 09:00 06/21/18 09:00 Microbiology 06/18/18 02:04 Urine Culture - Final Urine,Catheterized Laboratory Results 06/21/18 05:30 06/21/18 05:30 06/20/18 06/21/18 06/22/18 05:59 05:59 05:59 Intake Total 1747 698.5 Output Total 1150 1800 Balance 597 -1101.5 PT 15.2 SEC (12.0-15.0) H 06/20/18 04:00 INR 1.18 (0.83-1.16) H 06/20/18 04:00 Physical Exam - Physical Exam General Appearance: other (seems to open eyes to commands) Skin: other (bruising, petechiae upper extremitities) ICD10 Worksheet Patient Problems: Problems Problem Status Onset Acute renal insufficiency Acute Generalized weakness Acute Hyponatremia Acute Patient on antineoplastic chemotherapy regimen Acute Thrombocytopenia due to drugs Acute UTI (urinary tract infection), bacterial Acute Cardiomyopathy Acute Fatigue Acute Thrombocytopenia Acute
[2018-06-21] MEDS ORDERED: ONDANSETRON DISINTEGRATING 4 MG TAB TUBE PRN (11:30)
[2018-06-21] MEDS: POTASSIUM Cl (KCl) 50 ML IV SCH (11:39)
--- NOTE | 2018-06-21 12:30 | HOSPPROG ---
Hospitalist Progress Note Assessment/Plan: ASSESSMENT #Acute CVA - CT head 06/19 noting large subacute infarct in left frontal lobe which is likely the etiology of her encephalopathy. - CTA head/neck negative yesterday. - PT/OT/SUPERVISOR FUNCTIONAL TESTING, lipids, A1c ordered. - Neurology consulted who recommend BP control, LDL goal < 70 (74, Atorvastatin 40 mg started), H1AC goal < 7.0, PT/OT/Speech consults to determine rehab needs , they recommend AC with [facility]HA[facility] Carrion for stroke prevention, will defer to hematology - F/U neurology clinic 1-5 weeks after hospital discharge # acute respiratory failure requiring intubation - intubated for airway protection and tachypnea. CT PE negative for PE and without infiltrate - Diuresing with 20 mg IV Lasix BID # Acute encephalopathy - Patient with subacute versus acute left frontal temporal stroke. - No clear signs for meningitis. Encephalitis is possible given initial mild infectious symptoms on presentation however these may also have been side effects of chemotherapy. - A paraneoplastic process causing encephalitis is possible, considering LP #Hyponatremia - Na 129 today, likely decreased in setting of NPO - Adjust tube feeds, FWF as needed - Continue to monitor # NSTEMI T-wave inversions and troponin leak may be due to CVA but coronary artery thrombus is also possible. # thrombocytopenia Chemo related versus ITP versus hypercoagulable state. Very low suspicion for HIT given lack of heparin administration and clinical course # venous and arterial thrombi May be malignant related versus underlying autoimmune conditions such as APS. JULIANNE unlikely as per above # breast cancer Management per Oncology # UTI S/p treatment with Ceftriazxone PLAN # intubated 06/19/18 for acute respiratory failure and airway protection, continue lung protective ventilation, minimize sedation # Was initiated on low intensity heparin infusion no bolus for NSTEMI and possible ACS in light of her history of multiple venous and arterial thrombotic events. Holding heparin in setting of CVA, thrombocytopenia- per hematology recommendations # S/p IVIG yesterday # Hematology sent for lupus anticoagulant, anticardiolipin antibodies , [id number] , HIT # continue trickle feeds # Feeding - NPO # Analgesia prn fentanyl # Sedation propofol # Thromboprophylaxis - hep gtt # Head of bed elevated # Ulcer prophylaxis - H2 gin # Glucose SSI # Skin no skin breakdown # Delirium - delirium precautions Patient is critical ill due to life threatening organ dysfunction and is at high risk for decompensation and . Total critical care time, excluding procedures: 40 min. This time was spent spent direct side at bedside care patient, family meetings, reviewing chart, discussing care with other specialists. Subjective: Patient intubated, at bedside Objective: Vital Signs Temp Pulse Resp BP Pulse Ox 37.6 C 91 34 H 127/67 H 100 06/21/18 11:00 06/21/18 11:00 06/21/18 11:00 06/21/18 11:00 06/21/18 11:00 Microbiology 06/18/18 02:04 Urine Culture - Final Urine,Catheterized Laboratory Results 06/21/18 05:30 06/21/18 05:30 06/20/18 06/21/18 06/22/18 05:59 05:59 05:59 Intake Total 1747 698.5 Output Total 1150 1800 Balance 597 -1101.5 PT 15.2 SEC (12.0-15.0) H 06/20/18 04:00 INR 1.18 (0.83-1.16) H 06/20/18 04:00 - Physical Exam Constitutional: chronically ill appearing, other (intubated) Eyes: anicteric sclera Ears, Nose, Mouth, Throat: oral ulcer, dry mucous membranes, other ( endotracheal tube in place) Cardiovascular: regular rate and rhythym Respiratory: other (mechanical breath sounds) Gastrointestinal: soft, non-tender abdomen Genitourinary: rubin in urethra Skin: warm Neurologic: No AAOx3 Psychiatric: No interacting appropriately ICD10 Worksheet Patient Problems: Problems Problem Status Onset Acute renal insufficiency Acute Generalized weakness Acute Hyponatremia Acute Patient on antineoplastic chemotherapy regimen Acute Thrombocytopenia due to drugs Acute UTI (urinary tract infection), bacterial Acute Cardiomyopathy Acute Fatigue Acute Thrombocytopenia Acute
--- NOTE | 2018-06-21 12:31 | ASMTCMCOM ---
CM Note CM Note Notes: Patient's , Bhupinder spoke with patient's son last night. He is in agreement with Bhupinder serving as proxy. Paperwork in the front of the chart. Dr. cota speak with family today about her code status. It is full code presently and may change to DNR. Patient remains critically ill. CM will follow. Date Signed: 06/21/2018 12:30 PM Electronically Signed By:Nuvia Mayes LCSW
--- NOTE | 2018-06-21 13:04 | PDINTPN ---
Digital Photographic Printer Progress Note Assessment/Plan: ASSESSMENT 67-year-old female with stage IIb breast cancer, transferred to the ICU after acute CVA leading to obtain day henley and respiratory failure in the setting of thrombocytopenia and hypercoagulability # acute respiratory failure requiring intubation intubated for airway protection and tachypnea. CT PE negative for PE and without infiltrate. # Acute encephalopathy Acute CVA plus metabolic encephalopathy. Paraneoplastic process and infection less likley. Propofol off since 06/20/18 at 1300. Prognosis is guarded # acute respiratory failure requiring intubation # CVA Thrombus in L M3 with corresponding hypodensity in left frontotemporal region. Also with possible CVA in cerebellum. Unable to do MRI 2/2 pacer. # Type 2NSTEMI Due to above troponins peaked at 1.5. # Stress Cardiomyopathy # Hypokalemia and hypomagnesemia # ITP Thrombocytopenia preceded chemotherapy. Platelets increased after administering steroids and Rituxan. TTP, residual chemo effect less likely # venous and arterial thrombi. S/p IVIG 06/20/18. May be malignant related versus underlying autoimmune conditions such as APS. JULIANNE unlikely as per above # breast cancer Her2 positive, stage IIB. # UTI Treated PLAN # lung protective ventilation, okay to perform open and a pressure support trials, as patient is low risk for ARDS # continue diuresis # aggressively replete electrolytes, add spironolactone 25 po bid # s/p IVIG 06/20/18 # will check lupus anticoagulant and platelet factor 4 antibodies # it platelet count remains at current level or greater tomorrow will start aspirin and possibly heparin drip # will defer LP for now # Feeding - tube feeds # Analgesia prn fentanyl # Sedation propofol # Thromboprophylaxis - SCDs, and SQHep # Head of bed elevated # Ulcer prophylaxis - H2 gin # Glucose SSI # Skin no skin breakdown Patient is critical ill due to life threatening organ dysfunction and is at high risk for decompensation and . Total critical care time, excluding procedures: 115 min which was spent reviewing patient's record, evaluating and re-examining patient, discussions with family, multidisciplinary rounds. EVENTS 06/15/18 intubation 06/20/18 IVIG Objective: Vital Signs Temp Pulse Resp BP Pulse Ox 37.6 C 93 36 H 121/67 H 100 06/21/18 11:00 06/21/18 12:00 06/21/18 12:00 06/21/18 12:00 06/21/18 12:00 Microbiology 06/18/18 02:04 Urine Culture - Final Urine,Catheterized Laboratory Results 06/21/18 05:30 06/21/18 05:30 06/20/18 06/21/18 06/22/18 05:59 05:59 05:59 Intake Total 1747 698.5 Output Total 1150 1800 Balance 597 -1101.5 PT 15.2 SEC (12.0-15.0) H 06/20/18 04:00 INR 1.18 (0.83-1.16) H 06/20/18 04:00 ICD10 Worksheet Patient Problems: Problems Problem Status Onset Acute renal insufficiency Acute Generalized weakness Acute Hyponatremia Acute Patient on antineoplastic chemotherapy regimen Acute Thrombocytopenia due to drugs Acute UTI (urinary tract infection), bacterial Acute Cardiomyopathy Acute Fatigue Acute Thrombocytopenia Acute
[2018-06-21] MEDS: MBX SOLN 30 ML BOTTLE PO PRN (14:09)
[2018-06-21] MEDS: SPIRONOLACTONE 25 MG TAB PO SCH ×2 (14:31→21:02)
[2018-06-21] MEDS: MAGNESIUM OXIDE 400 MG TAB PO SCH ×3 (14:31→21:02)
--- NOTE | 2018-06-21 15:55 | PDCARPN ---
Cardiology Progress Note Chief Complaint: Patient continues to be unresponsive Assessment/Plan: Assessment: 06-21-18 Patient has been off sedation for the past 24 hours with little spontaneous movement. Ongoing vent support. Neurology saw patient yesterday, and provided recommendations. Consideration for follow up to determine neuro status as she remains off sedation with lack of improvement to mental status. At this time, there is no anticoagulant therapy on board, and cardiology continues to have some concern about the NSTEMI noted (based on both cardiac biomarker elevation as well as the newly noted reduction in systolic function). 06-20-18 Patient is a 67 y/o female, known to me in the outpatient setting, with history of PE (previously on Eliquis), non ischaemic CMP s/p ICD with normalization of LVEF noted, HTN, long standing LBBB pattern on ECG, NYHA class II CHF (in outpatient setting), and recent diagnosis of breast cancer (right side, stage IIB), with admission on 06-13-18 for weakness, malaise, and diarrhea - symptoms noted after her first round of chemotherapy. Last night, the patient decompensated from a respiratory standpoint, requiring intubation for airway management. Concerns about PE given her history led to CT to rule out pulmonary embolism (negative study). Two days prior the patient was noted to unresponsive and diagnosis of acute CVA to the left frontal lobe, described as "large" was appreciated. Today, the patient is sedated and intubated. Mild troponin elevation was noted (peak to 1.57), without ST/T wave changes appreciated (LBBB pattern). Discussions last night with critical care/hospitalist team about the addition of heparin (without bolus) and without ASA given concerns about bleeding risk. Patient's platelets last night were noted to be about 14,000. Platelet transfusions (3) were performed, and elevation in platelet counts were noted today. Neurology saw the patient in consultation today, and recommended ASA and Eliquis, but also recommended clearance with heme/onc prior to resumption of this therapy. Cardiology with recommendations for supportive measures (no invasive left heart catheterization given concerns about bleeding with thrombocytopenia). Plan: (1) Cardiology recommendations for heparin given the NSTEMI, but concerns about the extent of the CVA - would refrain from Eliquis at this point in time given what sounds like a sizeable CVA (2) Supportive measures should continue (3) Concerns about the lack of improvement off sedation - feels that the patient has revealed some signs/movement (4) Would consider input from neurology given her continued lack of recovery Subjective: Patient continues to be intubated, off sedation without return of purposeful movement/interactions Reviewed/Discussed With: family, hospitalist, multidisciplinary team Objective: Vital Signs (8 Hrs) Temp Pulse Resp BP Pulse Ox 06/21/18 15:00 76 33 H 126/64 H 100 06/21/18 14:00 86 34 H 117/63 100 06/21/18 13:00 120/63 06/21/18 12:00 94 24 H 121/67 H 97 06/21/18 11:00 37.6 C 91 34 H 127/67 H 100 06/21/18 10:00 131/7 H 06/21/18 09:00 105 H 34 H 124/61 H 100 06/21/18 08:36 97 30 H 99 Intake/Output (24 Hrs) 06/20/18 06/21/18 06/22/18 05:59 05:59 05:59 Intake Total 1747 698.5 Output Total 1150 1800 Balance 597 -1101.5 Intake: IV Infused (ml) 1647 339.5 Heparin/Dextrose 500 ml @ 45 Per Protocol IV CONT FAUZIA Rx#:[id number] Immune Globulin 80 gm ( 265 See Protocol) IV ONCE ONE Rx#:[id number] Ns 1,000 ml @ 100 mls/hr 1485 IV CONT FAUZIA Rx#: [id number] Propofol/Emulsion 100 ml 117 74.5 @ Per Protocol IV CONT FAUZIA Rx#:[id number] Tube Feeding (ml) 50 209 Tube Flush (ml) 50 150 Output: Urine (ml) 1150 1800 Catheter 1150 1800 Other: Weight 105.6 kg Result Diagrams: 06/21/18 05:30 06/21/18 05:30 Cardiac Labs: Cardiac Lab Results (72 Hrs) 06/20/18 06/20/18 06/19/18 04:00 04:00 19:39 Troponin I Cancelled 1.300 H 1.470 H 06/19/18 16:05 Troponin I 1.570 H Telemetry: ventricular paced rhythm - Physical Exam Constitutional: WDWN, no apparent distress Eyes: PERRL, EOMI Ears, Nose, Mouth, Throat: moist mucous membranes Cardiovascular: regular rate and rhythm Peripheral Pulses: 2+: dorsalis-pedis (R), dorsalis-pedis (L) Respiratory: other (course breath sounds) Skin: other (mild lower extremity edema) Psychiatric: encephalopathic ICD10 Worksheet Patient Problems: Problems Problem Status Onset Acute renal insufficiency Acute Generalized weakness Acute Hyponatremia Acute Patient on antineoplastic chemotherapy regimen Acute Thrombocytopenia due to drugs Acute UTI (urinary tract infection), bacterial Acute Cardiomyopathy Acute Fatigue Acute Thrombocytopenia Acute
[2018-06-21] MEDS ORDERED: POTASSIUM CL 20 MEQ/15 ML UDCUP TUBE ONE (19:45)
[2018-06-21] MEDS: LOPERAMIDE HCL 1 MG/5 ML UDL TUBE PRN ×2 (22:38→22:41)
[2018-06-22] MEDS ORDERED: MAGNESIUM SULF 1 GM/DEXTROSE 100 ML IV ONE (04:47)
[2018-06-22] MEDS ORDERED: POTASSIUM CL 20 MEQ/15 ML UDCUP PO ONE (05:00)
[2018-06-22] MEDS: NYSTATIN SUSP 500000 UNIT/5 ML UD LIQ PO SCH ×4 (05:03→21:20)
[2018-06-22 05:19] LABS: PLATELET COUNT 130 10^3/uL (150-400)
[2018-06-22] MEDS ORDERED: FUROSEMIDE 20 MG/2 ML VIAL IVP SCH (09:00)
[2018-06-22] MEDS: ATORVASTATIN CALCIUM 40 MG TAB TUBE SCH (09:02)
[2018-06-22] MEDS: FAMOTIDINE 20 MG TAB TUBE SCH ×2 (09:02→20:24)
[2018-06-22] MEDS: MAGNESIUM OXIDE 400 MG TAB PO SCH ×3 (09:03→20:24)
[2018-06-22] MEDS: SPIRONOLACTONE 25 MG TAB TUBE SCH ×2 (09:03→20:24)
[2018-06-22] MEDS ORDERED: HEPARIN 10,000 UNIT/10 ML MDV (1,000 UNIT/ML) IVP PRN ×3 (09:05→12:43)
[2018-06-22] MEDS ORDERED: HEPARIN/DEXTROSE 500 ML IV SCH ×4 (09:15→12:43)
[2018-06-22] MEDS: Loratadine [Claritin] 10 MG TUBE SCH (09:25)
--- NOTE | 2018-06-22 09:37 | SOAPPROG ---
SOAP Progress Note Assessment/Plan: Assessment: 67 y/o woman with acute, devastating CVA, breast cancer, NQWMI, CHF with LVEF 37 % and BIVAICD. She is neurologically very impaired and and family are considering extubation today and let pass peacefully. She was changed to DNR yesterday. PLAN: 1)continue IV lasix and Aldactone per tube 2)turn off AICD shocking function of her BIVAICD 3)cardiology will sign off. Please call us if new cardiac issues arise. Obvious , no cardiac cath for recent NQWMI 06/22/18 09:34 Subjective: intubated. Unresponsive. Family at bedside. Not on IV pressors. Objective: Vital Signs Temp Pulse Resp BP Pulse Ox 38.6 C H 96 30 H 106/54 L 100 06/22/18 04:00 06/22/18 08:49 06/22/18 08:49 06/22/18 06:00 06/22/18 08:49 Laboratory Results 06/22/18 04:11 06/22/18 04:11 06/21/18 06/22/18 06/23/18 05:59 05:59 04:59 Intake Total 698.5 927 Output Total 1800 4175 Balance -1101.5 -3248 PT 15.2 SEC (12.0-15.0) H 06/20/18 04:00 INR 1.18 (0.83-1.16) H 06/20/18 04:00 Physical Exam - Physical Exam General Appearance: unresponsive EENT: No scleral icterus (L) Neck: supple Respiratory: lungs clear Cardiac/Chest: regular rate, rhythm, systolic murmur, No gallop, No JVD Peripheral Pulses: 2+: carotid (R), carotid (L), femoral (R), femoral (L), dorsalis-pedis (R), dorsalis-pedis (L) Abdomen: No non-tender Skin: warm/dry Extremities: No pedal edema Neuro/Psych: other (unresponsive except deep painful stimuli) ICD10 Worksheet Patient Problems: Problems Problem Status Onset Acute renal insufficiency Acute Generalized weakness Acute Hyponatremia Acute Patient on antineoplastic chemotherapy regimen Acute Thrombocytopenia due to drugs Acute UTI (urinary tract infection), bacterial Acute Cardiomyopathy Acute Fatigue Acute Thrombocytopenia Acute
[2018-06-22 09:57] LABS: INR 1.13 (0.83-1.16); PROTIME(PATIENT) 14.7 SEC (12.0-15.0)
--- NOTE | 2018-06-22 11:18 | SOAPPROG ---
SOAP Progress Note Assessment/Plan: Assessment: 1. Locally advanced her 2+ breast cancer s/p 1 cycle of TCH-P 2. ITP, responding to IVIG (06/20) 3. Massive stroke Pt's and family likely to extubate in next 24 hours, transition to comfort care. seems c/w patient's previously stated wishes. ITP is responding to IVIG but not really significant in light of the overall picture of devastating stroke. Plan: -comfort care, as low odds of meaningful recovery d/w pt's family and ICU team. 30 min spent w/ pt and in coordination of care. 06/22/18 11:16 Subjective: intubated. Objective: exam: intubated responds to voice Lungs CTAB CV RRR no MGR Abd: +BS NT nD Vital Signs Temp Pulse Resp BP Pulse Ox 38.6 C H 96 30 H 106/54 L 100 06/22/18 04:00 06/22/18 08:49 06/22/18 08:49 06/22/18 06:00 06/22/18 08:49 Laboratory Results 06/22/18 04:11 06/22/18 04:11 06/21/18 06/22/18 06/23/18 05:59 05:59 04:59 Intake Total 698.5 927 Output Total 1800 4175 Balance -1101.5 -3248 PT 14.7 SEC (12.0-15.0) 06/22/18 09:40 INR 1.13 (0.83-1.16) 06/22/18 09:40 ICD10 Worksheet Patient Problems: Problems Problem Status Onset Acute renal insufficiency Acute Generalized weakness Acute Hyponatremia Acute Patient on antineoplastic chemotherapy regimen Acute Thrombocytopenia due to drugs Acute UTI (urinary tract infection), bacterial Acute Cardiomyopathy Acute Fatigue Acute Thrombocytopenia Acute
--- NOTE | 2018-06-22 12:04 | HOSPPROG ---
Hospitalist Progress Note Assessment/Plan: ASSESSMENT #Goals of Care - Discussion with and daughter - They are awaiting family members arrival to see patient - Likely comfort care initiating in next 24 hours with possible extubation #Acute CVA - CT head 06/19 noting large subacute infarct in left frontal lobe which is likely the etiology of her encephalopathy. - CTA head/neck negative yesterday. - PT/OT/GRAIN INSPECTOR, lipids, A1c ordered. - Neurology consulted who recommend BP control, LDL goal < 70 (74, Atorvastatin 40 mg started), H1AC goal < 7.0, PT/OT/Speech consults to determine rehab needs , they recommend AC with [facility]ion for stroke prevention, thrombocytopenia preventing this # acute respiratory failure requiring intubation - intubated for airway protection and tachypnea. CT PE negative for PE and without infiltrate - Diuresing with 40 mg IV Lasix qd, Spironolactone due to fluid overload seen on CXR - continue lung protective ventilation, minimize sedation # Acute encephalopathy - Patient with subacute versus acute left frontal temporal stroke. - No clear signs for meningitis. Encephalitis is possible given initial mild infectious symptoms on presentation however these may also have been side effects of chemotherapy. - A paraneoplastic process causing encephalitis is possible, considering LP #Hyponatremia - Na 130 today, 129 yesterday, likely decreased in setting of NPO - Adjust tube feeds, FWF as needed - Continue to monitor # NSTEMI T-wave inversions and troponin leak may be due to CVA but coronary artery thrombus is also possible. Cardiology following, recommending no intervention in setting of severe stroke and comfort care # thrombocytopenia Chemo related versus ITP versus hypercoagulable state. Very low suspicion for HIT given lack of heparin administration and clinical course. Improving this AM to 103 s/p IVIG on 06/20 # venous and arterial thrombi May be malignant related versus underlying autoimmune conditions such as APS. JULIANNE unlikely as per above. Low intensity heparin gtt started per ICU attending. # breast cancer Management per Oncology # UTI S/p treatment with Ceftriazxone # intubated 06/19/18 for acute respiratory failure and airway protection, # Hematology sent for lupus anticoagulant, anticardiolipin antibodies , [id number] , HIT # continue trickle feeds # Feeding - NPO # Analgesia prn fentanyl # Sedation propofol # Thromboprophylaxis - hep gtt # Head of bed elevated # Ulcer prophylaxis - H2 gin # Glucose SSI # Skin no skin breakdown # Delirium - delirium precautions Patient is critical ill due to life threatening organ dysfunction and is at high risk for decompensation and . Total critical care time, excluding procedures: 40 min. This time was spent spent direct side at bedside care patient, family meetings, reviewing chart, discussing care with other specialists. Subjective: Patient intubated and not responding to verbal stimuli Objective: Vital Signs Temp Pulse Resp BP Pulse Ox 38.6 C H 96 30 H 106/54 L 100 06/22/18 04:00 06/22/18 08:49 06/22/18 08:49 06/22/18 06:00 06/22/18 08:49 Laboratory Results 06/22/18 04:11 06/22/18 04:11 06/21/18 06/22/18 06/23/18 05:59 05:59 04:59 Intake Total 698.5 927 Output Total 1800 4175 Balance -1101.5 -3248 PT 14.7 SEC (12.0-15.0) 06/22/18 09:40 INR 1.13 (0.83-1.16) 06/22/18 09:40 - Physical Exam Constitutional: no apparent distress, other (intubated) Eyes: anicteric sclera Ears, Nose, Mouth, Throat: dry mucous membranes, other (endotracheal tube in place) Respiratory: other (mechanical breath sounds) Gastrointestinal: soft, non-tender abdomen Genitourinary: rubin in urethra Skin: normal color Neurologic: No AAOx3 Psychiatric: No interacting appropriately ICD10 Worksheet Patient Problems: Problems Problem Status Onset Acute renal insufficiency Acute Generalized weakness Acute Hyponatremia Acute Patient on antineoplastic chemotherapy regimen Acute Thrombocytopenia due to drugs Acute UTI (urinary tract infection), bacterial Acute Cardiomyopathy Acute Fatigue Acute Thrombocytopenia Acute
--- NOTE | 2018-06-22 13:44 | PDINTPN ---
Shipfitter Apprentice Progress Note Assessment/Plan: ASSESSMENT 67-year-old female with stage IIb breast cancer, transferred to the ICU after acute CVA leading to obtain day henley and respiratory failure in the setting of thrombocytopenia and hypercoagulability with poor prognosis # acute respiratory failure requiring intubation intubated for airway protection and tachypnea. CT PE negative for PE and without infiltrate. Currently doing well on CPAP # Acute encephalopathy Acute CVA plus metabolic encephalopathy. Paraneoplastic process and infection less likley. Propofol off since 06/20/18 at 1300. Prognosis is guarded # acute respiratory failure requiring intubation # CVA Thrombus in L M3 with corresponding hypodensity in left frontotemporal region. Also with possible CVA in cerebellum. Unable to do MRI 2/2 pacer. # Type 2NSTEMI Due to above troponins peaked at 1.5. # Stress Cardiomyopathy. # Hypokalemia and hypomagnesemia # ITP Thrombocytopenia preceded chemotherapy. Platelets increased after administering steroids and Rituxan. TTP, residual chemo effect less likely # Venous and arterial thrombi. S/p IVIG 06/20/18. May be malignant related versus underlying autoimmune conditions such as APS. PF4 abs negative, excluding JULIANNE. # breast cancer Her2 positive, stage IIB. # UTI Treated # Goals of Care - after extensive conversations with family, anticipate extubating and making comfort care in the next 24-36 hr # DNR PLAN # lung protective ventilation, okay to perform open and a pressure support trials, as patient is low risk for ARDS # continue diuresis with lasix and spironolactone # AICD turned off 06/22/18. # aggressively replete electrolytes, add spironolactone 25 po bid # s/p IVIG 06/20/18 # will check lupus anticoagulant and platelet factor 4 antibodies # it platelet count remains at current level or greater tomorrow will start aspirin and possibly heparin drip # will defer LP for now # Feeding - tube feeds # Analgesia prn fentanyl # Sedation propofol # Thromboprophylaxis - SCDs, and heparin gtt # Head of bed elevated # Ulcer prophylaxis - H2 gin # Glucose SSI # Skin no skin breakdown Patient is critical ill due to life threatening organ dysfunction and is at high risk for decompensation and . Total critical care time, excluding procedures: 130 min which was spent reviewing patient's record, evaluating and re-examining patient, discussions with family, multidisciplinary rounds. EVENTS 06/15/18 intubation 06/20/18 IVIG Subjective: Patient is still requiring ventilation although doing okay and pressure support trials however high RSBI. Extensive conversations is seen today with family regarding goals of care. She would not want heroic life-saving measures and would not want to maintain on prolonged life support. For which she went to be permanently disabled. Given goals of care we elected to make patient DNR return of her AICD. We are going to continue with current life support until more family can arrive and then make a decision regarding extubation and changing goals to comfort. ROS unable to be obtained secondary to patient's mental status Objective: Vital Signs Temp Pulse Resp BP Pulse Ox 36.9 C 94 32 H 123/68 H 99 06/22/18 12:00 06/22/18 12:00 06/22/18 12:00 06/22/18 12:00 06/22/18 12:00 Laboratory Results 06/22/18 04:11 06/22/18 04:11 06/21/18 06/22/18 06/23/18 05:59 05:59 04:59 Intake Total 698.5 927 Output Total 1800 4175 Balance -1101.5 -3248 PT 14.7 SEC (12.0-15.0) 06/22/18 09:40 INR 1.13 (0.83-1.16) 06/22/18 09:40 I reviewed interpreted patient's radiographic images from today. Chest x-ray with low lung volumes elevated right hemidiaphragm ET tube in place, grossly clear lung parenchyma Physical Exam - Physical Exam General Appearance: obtunded EENT: ET tube, No scleral icterus (L), No pale conjunctiva (R) Neck: supple, normal inspection Respiratory: lungs clear, other (Decreased breath sounds in bases, tachypneic, no distress) Cardiac/Chest: regular rate, rhythm, edema Abdomen: non-tender, soft Skin: normal color, warm/dry Extremities: normal range of motion Neuro/Psych: other (Up tended, grimaces to pain, intermittently moving left arm and left leg does not open eyes) ICD10 Worksheet Patient Problems: Problems Problem Status Onset Acute renal insufficiency Acute Generalized weakness Acute Hyponatremia Acute Patient on antineoplastic chemotherapy regimen Acute Thrombocytopenia due to drugs Acute UTI (urinary tract infection), bacterial Acute Cardiomyopathy Acute Fatigue Acute Thrombocytopenia Acute
--- NOTE | 2018-06-22 14:27 | ASMTCMCOM ---
CM Note CM Note Notes: Per Press Operator, patient's code status changed to DNR and her AICD was turned off. The family wishes to continue life support until more family arrives and they can discuss goals of care, extubation, etc. If they wish, we will make a hospice referral at that time. Patient's prognosis remains guarded. Case Management will follow. Date Signed: 06/22/2018 02:26 PM Electronically Signed By:Aimee Quevedo RN
[2018-06-22] MEDS ORDERED: BISACODYL 10 MG SUPP PR PRN (16:57)
[2018-06-22] MEDS ORDERED: HALOPERIDOL LACT 5 MG/ML INJ IVP PRN (16:57)
[2018-06-22 18:17] VITALS: BP 120/61
[2018-06-22] MEDS: ATROPINE 1% 5 ML OPHT.BTL SL PRN ×2 (18:30→23:25)
[2018-06-22] MEDS: LORazepam 2 MG/ML INJ IVP PRN ×3 (19:00→23:21)
[2018-06-22] MEDS: BENZOCAINE 20%/MENTHOL (ORAJEL) GEL 11.9GM TUBE TP PRN ×2 (20:32→23:25)
[2018-06-23] MEDS: LORazepam 2 MG/ML INJ IVP PRN ×2 (01:31→03:24)
[2018-06-23] MEDS: BENZOCAINE 20%/MENTHOL (ORAJEL) GEL 11.9GM TUBE TP PRN ×2 (01:34→03:28)
[2018-06-23] MEDS: ATROPINE 1% 5 ML OPHT.BTL SL PRN ×2 (01:34→03:28)
--- NOTE | 2018-06-23 11:31 | PDDCSUM ---
Discharge Summary Discharge Summary: Date of Admission: 06/13/2018 Date of Discharge: 06/23/2018 Consults: Neurology, Cardiology, Critical Care, Oncology Hospital Course Problem List: #Goals of Care - Discussion with and daughter, comfort care pursued on 06/22 - Patient after extubation on 06/22 #Acute CVA - CT head 06/19 noting large subacute infarct in left frontal lobe which is likely the etiology of her encephalopathy. - CTA head/neck negative - Neurology consulted who recommend BP control, LDL goal < 70 (74, Atorvastatin 40 mg started), H1AC goal < 7.0, PT/OT/Speech consults to determine rehab needs , they recommend AC with [facility] for stroke prevention, thrombocytopenia preventing this # acute respiratory failure requiring intubation - intubated for airway protection and tachypnea. CT PE negative for PE and without infiltrate - Diuresed with 40 mg IV Lasix qd, Spironolactone due to fluid overload seen on CXR # Acute encephalopathy - Patient with subacute versus acute left frontal temporal stroke. - No clear signs for meningitis. Encephalitis is possible given initial mild infectious symptoms on presentation however these may also have been side effects of chemotherapy. #Hyponatremia - Na 130, 129 yesterday, likely decreased in setting of NPO - Adjust tube feeds, FWF as needed - Continue to monitor # NSTEMI T-wave inversions and troponin leak may be due to CVA but coronary artery thrombus is also possible. Cardiology following, recommending no intervention in setting of severe stroke and comfort care # thrombocytopenia Chemo related versus ITP versus hypercoagulable state. Very low suspicion for HIT given lack of heparin administration and clinical course. Improving to 103 s /p IVIG on 06/20 # venous and arterial thrombi May be malignant related versus underlying autoimmune conditions such as APS. JULIANNE unlikely as per above. Low intensity heparin gtt started per ICU attending. # breast cancer Management per Oncology # UTI S/p treatment with Ceftriazxone # intubated 06/19/18 for acute respiratory failure and airway protection, # Hematology sent for lupus anticoagulant, anticardiolipin antibodies , [id number] , HIT # continue trickle feeds # Feeding - NPO # Analgesia prn fentanyl # Sedation propofol # Thromboprophylaxis - hep gtt # Head of bed elevated # Ulcer prophylaxis - H2 gin # Glucose SSI # Skin no skin breakdown # Delirium - delirium precautions
--- NOTE | 2018-06-23 14:55 | CPEKG ---
Test Reason : OPEN Blood Pressure : / mmHG Vent. Rate : 117 BPM Atrial Rate : 116 BPM P-R Int : 145 ms QRS Dur : 122 ms QT Int : 376 ms P-R-T Axes : 000 199 187 degrees QTc Int : 525 ms VENTRICULAR-PACED RHYTHM Confirmed by Boston Gill ([id number]) on 06/23/2018 2:54:47 PM Referred By: Confirmed By:Boston Gill
--- NOTE | 2018-06-24 09:15 | ASDISCHSUM ---
Discharge Information Plan Status:Has needs-TBD Medically Cleared to Leave: Discharge Date:06/23/2018 04:10 AM CM D/C Disposition: ADT D/C Disposition: Projected Discharge Date:06/15/2018 11:00 AM Transportation at D/C: Discharge Delay Reason: Follow-Up Date:06/15/2018 11:00 AM Discharge Slot: Final Diagnosis: Placement Information Referral Type:*Home Health Care Services Referral ID:[id number] Provider Name: Address 1: Phone Number: Address 2: Fax Number: City: Selection Factors: State: Patient Contact Information Contact Name:SHANNON Relationship: Address:[facility] City:[place] Phone: State/Zip Code:[place] [address] Email: Financial Information Financial Class:Medicare Primary Plan Desc:MEDICARE INPATIENT Primary Plan Number:[id number] Secondary Plan Desc:[facility] Secondary Plan Number:[id number] Assessment Information [facility] CM Progress Note CM Note CM Note Notes: Patient who is one week post chemo (first tx for recent dx of breast cancer) admitted for thrombocytopenia, UTI, CHRISSY and general malaise. Patient is normally independent and lives with . She is feeling very poorly and reconsidering chemo tx based on her current condition. Palliative will see her, and I've alerted Marivel Lundy, breast cancer armature bander. PT/OT merals pending, as well. Case Managment will follow. Date Signed: 06/14/2018 12:44 PM Electronically Signed By:Aimee Quevedo RN [facility] CM Progress Note CM Note CM Note Notes: 06/15/2018 Case Management Note Met w/pt and to discuss PT recommendation for home care. Both agreeable. Pt lives in [facility]. Faxed multiple referrals. Phone call from Aug with [facility] accepting patient. Aug to visit pt on Sunday. Case Management d/c poc: [facility] PT Case Management to follow. Date Signed: 06/15/2018 04:06 PM Electronically Signed By:Fany Jensen RN [facility] CM Progress Note CM Note CM Note Notes: Patient plan of care reviewed in rounds. 67 year old female s/p bilateral mastectomies in with low platelet count thought to be r/t chemotherapy.She will have [facility] with [facility] services. CM to follow for needs. Plan: Dc to home with [facility] RN. Date Signed: 06/17/2018 12:22 PM Electronically Signed By:Brandi Fernandes RN [facility] Progress Note CM Note CM Note Notes: Patient plan of care reviewed in am rounds. She has suffered some event since last night and her platelet count was again low. Some improvement in neurological response but not at baseline. CM to follow. Plan: TBD Date Signed: 06/18/2018 12:38 PM Electronically Signed By:Brandi Fernandes RN [facility] Progress Note CM Note CM Note Notes: No significant improvement in neurological status. See notes from neurology. at bedside. NTBD at this time. Plan: TBD Date Signed: 06/19/2018 10:19 AM Electronically Signed By:Brandi Fernandes RN [facility] Progress Note CM Note CM Note Notes: A family meeting was held today ( please see Cherelle Goins's notes). In attendance were patient's , Bhupinder, cousin, Tamika, and granddaughter, Cass. Staff present were Annette, Nurse Electroplating Technician, Chaplain Cherelle and ROMEO Pedersen. Patient's described patient as someone who struggled with medical interventions as evidenced by her ignoring her tumor for 2 years and only seeking treatment when the tumor broke through the skin and was bleeding. Cass pointed out patient had always struggled with depression even before the medical problems began. Patient's mother was a [employer] and though patient doesn't ascribe to their belief system, she has been influenced by it. We did discuss the liklihood of need for rehab due to patient becoming debilitated by the multiple conditions she is dealing with ( pacemaker, stroke, cancer, blood clots, etc.). Assured patient's Bhupinder we would help make the arrangements and would discuss the plan with him when she is closer to being ready for the next level of care. Patient currently is not doing well and her prognosis is poor/guarded. Annette let the family know she would remain in the ICU for a minimum of another week. We discussed the need for a proxy and the family members in the room felt Bhupinder needs to be proxy. This paperwork is in the front of the chart. Patient's son may or may not agree, however, patient has not been close to him for the past several years and he lives in [place]. The family was informed they can request another family meeting whenever they need one. D/C plan is TBD. CM will continue to follow. Date Signed: 06/20/2018 03:57 PM Electronically Signed By:Nuvia Mayes LCSW [facility] Progress Note CM Note CM Note Notes: Patient's , Bhupinder spoke with patient's son last night. He is in agreement with Bhupinder serving as proxy. Paperwork in the front of the chart. Dr. cota speak with family today about her code status. It is full code presently and may change to DNR. Patient remains critically ill. CM will follow. Date Signed: 06/21/2018 12:30 PM Electronically Signed By:Nuvia Mayes LCSW [facility] Progress Note CM Note CM Note Notes: Per Brake Lining [employer]isher [employer], patient's code status changed to DNR and her AICD was turned off. The family wishes to continue life support until more family arrives and they can discuss goals of care, extubation, etc. If they wish, we will make a hospice referral at that time. Patient's prognosis remains guarded. Case Management will follow. Date Signed: 06/22/2018 02:26 PM Electronically Signed By:Aimee Quevedo RN Intervention Information
== END 2018-06-23 04:10 | disposition expired | DRG 689 ==
LOC: F1N 22:23 → F2N 06-19 17:56
PROVIDERS: ADMIT Hospitalist; ATTEND Hospitalist
PROC: 30233R1 Transfusion of Nonautologous Platelets into Peripheral Vein, Percutaneous Approach (ICD-10-PCS; principal; 2018-06-16)
PROC: 5A1945Z Respiratory Ventilation, 24-96 Consecutive Hours (ICD-10-PCS; 2018-06-19)
PROC: 0BH17EZ Insertion of Endotracheal Airway into Trachea, Via Natural or Artificial Opening (ICD-10-PCS; 2018-06-19)
DX: N39.0 Urinary tract infection, site not specified (principal); J96.01 Acute respiratory failure with hypoxia; I21.4 Non-ST elevation (NSTEMI) myocardial infarction; I63.9 Cerebral infarction, unspecified; G93.49 Other encephalopathy; E87.1 Hypo-osmolality and hyponatremia; D69.3 Immune thrombocytopenic purpura; N17.9 Acute kidney failure, unspecified; C50.911 Malignant neoplasm of unspecified site of right female breast; I10 Essential (primary) hypertension; D70.1 Agranulocytosis secondary to cancer chemotherapy; K12.31 Oral mucositis (ulcerative) due to antineoplastic therapy; D69.59 Other secondary thrombocytopenia; Z66 Do not resuscitate; Z51.5 Encounter for palliative care; Z79.01 Long term (current) use of anticoagulants; Z86.711 Personal history of pulmonary embolism; Z86.718 Personal history of other venous thrombosis and embolism; Z95.810 Presence of automatic (implantable) cardiac defibrillator
CPT/HCPCS: 82435-PO; 82565-PO; 82947-PO; 83605-PO; 84132-PO; 84295-PO; 84520-PO; 85014-PO; 86022-90; 86147-90; 86704-90; 96365; 97161-GP; 97166-GO; 97530-GP; G0472; G8978-GP-CJ; G8979-GP-CI; G8987-GO-CM; G8988-GO-CL; J0696; J1100; J1200; J1459; J1644; J1940; J1953; J2060; J2250; J2270; J2370; J2704; J3475; J3480; P9035; P9100; Q9967